=== PATIENT | female | born 1945 | race Caucasian/White ===

== ENCOUNTER 2016-12-01 09:53 | Outpatient (CLI) | payer MEDICARE | END 2016-12-01 09:54 | disposition home or self-care (01) | DX: R07.9 Chest pain, unspecified (principal) | CPT/HCPCS: 78452; 93017; A9500 ==

== ENCOUNTER 2016-12-11 10:41 | Outpatient (CLI) | payer MEDICARE | END 2016-12-11 10:42 | disposition home or self-care (01) | DX: R07.9 Chest pain, unspecified (principal) ==

== ENCOUNTER 2017-04-07 12:21 | Outpatient (CLI) | payer MEDICARE ==
--- NOTE | 2017-04-08 18:40 | Mammography Report ---
DIGITAL SCREENING MAMMOGRAM: 04/07/2017 CLINICAL INDICATION: A 71-year-old with history of benign biopsies for screening. COMPARISON: 03/2016, 02/2016, 10/2013, 04/2012, 11/2010, 10/2009. TECHNIQUE: Routine CC and MLO projections were obtained of the breasts. FINDINGS: The breasts again demonstrate heterogeneously dense fibroglandular parenchyma bilaterally. Postbiopsy changes in the left upper outer quadrant are stable. Coarse, typically benign calcifica tions are present. No suspicious masses, clustered microcalcifications, or regions of architectural distortion are identified. IMPRESSION: BENIGN FINDINGS. RECOMMENDATION: Routine annual screening unless otherwise clinically indicated. BI-RADS category 2, benign findings. STANDARD QUALIFYING STATEMENTS 1. This examination was reviewed with the aid of Computer-Aided Detection (CAD). 2. A negative or benign imaging report should not delay biopsy if clinically suspicious findings are present. Consider surgical consultation if warranted. More than 5% of cancers are not identified by i maging. 3. Dense breasts may obscure an underlying neoplasm. JOB #: [id number] EXT JOB #:[id number]
== END 2017-04-07 12:22 | disposition home or self-care (01) ==
LOC: DI 12:21
PROVIDERS: ATTEND Internal Medicine
DX: Z12.31 Encounter for screening mammogram for malignant neoplasm of breast (principal)
CPT/HCPCS: 77067

== ENCOUNTER 2017-07-16 11:03 | Outpatient (CLI) | payer MEDICARE ==
--- NOTE | 2017-07-17 08:49 | XRAY Report ---
THREE VIEW RIGHT FOOT: 07/16/2017 CLINICAL INDICATION: Pain. FINDINGS: AP, lateral, oblique views of the right foot demonstrate no evidence of acute fracture or dislocation. Posttraumatic changes are seen in the proximal phalanx of the second toe and the fifth metatarsal. Osteoarthritis is present. No foreign body is seen in the soft tissues. IMPRESSION: Osteoarthritis and old, healed fractures. TD: 07/16/2017 19:04 [facility]
== END 2017-07-16 11:04 | disposition home or self-care (01) ==
LOC: DI 11:03
PROVIDERS: ATTEND Podiatrist
DX: M19.071 Primary osteoarthritis, right ankle and foot (principal)

== ENCOUNTER 2017-12-21 21:02 | Emergency (ER) | payer MEDICARE ==
[2017-12-21 21:38] LABS: BASOPHILS # (AUTO) 0.2 10^3/uL (0.0-0.1); BASOPHILS % (AUTO) 1.6 %; EOSINOPHILS # (AUTO) 0.2 10^3/uL (0.0-0.7); EOSINOPHILS % (AUTO) 1.3 %; HGB - HEMOGLOBIN 13.9 g/dL (12.0-16.0); LYMPHOCYTES # (AUTO) 1.6 10^3/uL (1.5-3.5); LYMPHOCYTES % (AUTO) 13.8 %; MEAN CORPUSCULAR HEMOGLOBIN 29.1 pg (27.0-31.0); MEAN CORPUSCULAR HGB CONC 34.6 g/dL (32.0-36.0); MEAN CORPUSCULAR VOLUME 84.1 fL (81.0-99.0); MONOCYTES # (AUTO) 1.2 10^3/uL (0.0-1.0); MONOCYTES % (AUTO) 10.4 %; NEUTROPHILS # (AUTO) 8.4 10^3/uL (1.5-6.6); NEUTROPHILS % (AUTO) 72.9 %; PLT - PLATELET COUNT 244 10^3/uL (130-450); RED BLOOD COUNT 4.79 10^6/uL (4.20-5.40); RED CELL DISTRIBUTION WIDTH 13.3 % (12.0-15.0); WHITE BLOOD COUNT 11.5 x10^3/uL (4.8-10.8)
[2017-12-21 21:50] LABS: ALBUMIN 4.1 g/dL (3.2-5.5); ALBUMIN/GLOBULIN RATIO 1.2 (1.0-2.2); BILIRUBIN,TOTAL 0.9 mg/dL (0.2-1.0); CALCIUM 9.7 mg/dL (8.5-10.3); CREATININE 1.4 mg/dL (0.4-1.0); TOTAL PROTEIN 7.4 g/dL (6.7-8.2)
[2017-12-21 22:10] LABS: TROPONIN I < 0.04 ng/mL (<0.49)
[2017-12-21 22:12] LABS: CREATINE KINASE MB 1.6 ng/mL (0.6-6.3)
--- NOTE | 2017-12-21 22:54 | XRAY Report ---
EXAM: CHEST RADIOGRAPHY EXAM DATE: 12/21/2017 10:17 PM. CLINICAL HISTORY: Syncope. Dizziness. COMPARISON: 12/11/2016. TECHNIQUE: 2 views. FINDINGS: Lungs/Pleura: No focal opacities evident. No pleural effusion. No pneumothorax. Normal volumes. Mediastinum: Heart and mediastinal contours are unremarkable. Other: No bony abnormalities noted. IMPRESSION: Normal 2-view chest radiography. [facility] Referring Provider Line: [phone] SITE ID: [id number]
--- NOTE | 2017-12-21 22:54 | XRAY Preliminary Report ---
Exam: XR CHEST 2 VIEW X-RAY IMPRESSION: Normal 2-view chest radiography. [facility] SITE ID: [id number]
--- NOTE | 2017-12-21 23:01 | CT Preliminary Report ---
Exam: CT HEAD W/O IMPRESSION: 1. No acute intracranial abnormality. 2. No intracranial mass lesion, mass effect, or hydrocephalus. 3. Chronic right basal ganglia infarct. There is also chronic microvascular change in the deep white matter bilaterally. [facility] SITE ID: [id number]
--- NOTE | 2017-12-21 23:01 | CT Report ---
EXAM: CT HEAD EXAM DATE: 12/21/2017 10:27 PM. CLINICAL HISTORY: Syncope, headaches, diplopia. COMPARISON: None. TECHNIQUE: Multiaxial CT images were obtained from the foramen magnum to the vertex. Reformats: Coron al. IV contrast: None. In accordance with CT protocol optimization, one or more of the following dose reduction techniques w ere utilized for this exam: automated exposure control, adjustment of mA and/or KV based on patient s ize, or use of iterative reconstructive technique. FINDINGS: Parenchyma: No intraparenchymal hemorrhage. No evidence of mass, midline shift, or CT findings of acu te infarction. Rendon-white differentiation is distinct. There is a 15 mm chronic infarct in the right basal ganglia. There is mild to moderate chronic microvascular change in the white matter of both cer ebral hemispheres. Extraaxial Spaces: Normal for age. No subdural or epidural collections identified. Ventricles: There is mild asymmetry of the frontal horns of both lateral ventricles with the left sma ller than the right. This is within normal limits. There is no hydrocephalus. Sinuses and Orbits: There is mild mucosal thickening in the left maxillary sinus and a few bilateral ethmoid air cells. Visualized sinuses are otherwise clear. No fluid levels. Mastoid air cells are noah ar. Orbits are unremarkable. Bones: No evidence of fracture or calvarial defect. Other: None. IMPRESSION: 1. No acute intracranial abnormality. 2. No intracranial mass lesion, mass effect, or hydrocephalus. 3. Chronic right basal ganglia infarct. There is also chronic microvascular change in the deep white matter bilaterally. [facility] Referring Provider Line: [phone] SITE ID: [id number]
[2017-12-21] MEDS ORDERED: ACETAMINOPHEN 325 MG TABLET PO STA (23:23)
[2017-12-22 01:03] VITALS: BP 149/52
--- NOTE | 2017-12-22 23:01 | ED Physician Documentation ---
PD HPI SYNCOPE - Stated complaint Stated Complaint: FAINTING - Chief complaint Chief Complaint: Neuro - History obtained from History obtained from: Patient, Family, EMS - History of Present Illness Witnessed: Witnessed Timing - onset: How many days ago (past two days) Duration: Seconds (less than a minute, per spouse) Preceding symptoms: Light headed, Generalized weakness. No: Chest pain, Palpitations, Dyspnea Associated symptoms: None Recently seen: Not recently seen - Additional information Additional information: c/o four episodes of syncope past 48 hours. these have occurred shortly after standing, except once when she had just sat down on toilet. prodrome of lightheadedness, last 30-45 seconds and then rapid return to baseline. Review of Systems Constitutional: reports: Reviewed and negative Eyes: reports: Other (diplopia (has seen shipping specialist for this, no diagnosis at this time)) Cardiac: reports: Reviewed and negative Respiratory: reports: Reviewed and negative GI: reports: Reviewed and negative : denies: Dysuria, Frequency Musculoskeletal: denies: Neck pain, Back pain Neurologic: reports: Generalized weakness, Syncope, Headache, LOC. denies: Focal weakness, Numbness, Seizure, Confused, Altered mental status, Head injury PD PAST MEDICAL HISTORY - Past Medical History Past Medical History: Yes Cardiovascular: Hypertension, High cholesterol Respiratory: Asthma Neuro: None Endocrine/Autoimmune: Type 1 diabetes GI: None, Other : None HEENT: None Psych: None Musculoskeletal: Osteoarthritis Derm: None, Other - Past Surgical History Past Surgical History: Yes Ortho: Other /[employer]: section, 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, 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 Cardiovascular: Cardiac catheterization HEENT: Cataracts - Present Medications Home Medications: Ambulatory Orders Medication Instructions Recorded Confirmed Albuterol Sulfate [Proair Hfa] 8.5 gm IH BID PRN 10/24/13 12/21/17 Diltiazem HCl [Diltzac ER] 240 mg PO DAILY 10/24/13 12/21/17 Insulin Detemir [Levemir] 10 unit SUBQ ACHS 10/24/13 12/21/17 Simvastatin [Zocor] 10 mg PO HS 10/24/13 12/21/17 Aspirin [Aspir 81] 1 tab ORAL DAILY 02/02/14 12/21/17 Beclomethasone Dipropionate [Qvar] 1 puffs INH BID 02/02/14 12/21/17 Calcium Citrate/Vitamin D3 1 tab ORAL BID 02/02/14 12/21/17 [Calcium Cit-Vit D 250-200 Tab] Citalopram [CeleXA] 20 mg ORAL DAILY 02/02/14 12/21/17 Insulin Lispro [Humalog] 20 units SQ DAILY 02/02/14 12/21/17 Losartan/Hydrochlorothiazide 1 tab ORAL DAILY 02/02/14 12/21/17 [Losartan-Hctz 100-12.5 mg Tab] Insulin Detemir [Levemir Flextouch] 20 units SUBQ DAILY 12/21/17 12/21/17 - Allergies Allergies/Adverse Reactions: Allergies Allergy/AdvReac Type Severity Reaction Status Date / Time quinidine AdvReac Dizziness Verified 12/21/17 21:18 tetracycline [Tetracycline] AdvReac Emesis Verified 12/21/17 21:18 - Social History Does the pt smoke?: No Smoking Status: Never smoker Does the pt drink ETOH?: No Does the pt have substance abuse?: No - Immunizations Immunizations are current?: Yes - POLST Patient has POLST: No PD ED PE NORMAL - Vitals Vital signs reviewed: Yes - General General: Alert and oriented X 3, No acute distress, Well developed/nourished - HEENT HEENT: PERRL, EOMI, Moist mucous membranes - Neck Neck: Supple, no meningeal sign, No bony TTP - Cardiac Cardiac: RRR, No murmur, No gallop, No rub - Respiratory Respiratory: No respiratory distress, Clear bilaterally - Abdomen Abdomen: Soft, Non tender - Extremities Extremities: No edema - Neuro Neuro: Alert and oriented X 3, eviscerator 2-12 intact, No motor deficit, No sensory deficit, Normal speech Eye Opening: Spontaneous Motor: Obeys Commands Verbal: Oriented GCS Score: 15 Results - Vitals Vitals: Vital Signs - 24 hr 12/21/17 12/21/17 12/22/17 23:12 23:13 00:24 Temperature 36.9 C Heart Rate 91 79 Respiratory 17 16 16 Rate Blood Pressure 157/69 H O2 Saturation 97 12/22/17 01:01 Temperature Heart Rate 75 Respiratory 17 Rate Blood Pressure 149/52 H O2 Saturation 97 Oxygen O2 Source Room air - EKG (time done) No standard instances Rate: Rate (enter#) (44) Rhythm: Other (ectopic bradycardia) [place]: Normal QRS: Normal Ischemia: Normal ST segments #2 Rate: Rate (enter#) (67) Rhythm: NSR [place]: Normal Intervals: Normal [place] QRS: Normal Ischemia: Normal ST segments - Labs Labs: Laboratory Tests 12/21/17 12/21/17 12/21/17 21:30 21:30 21:30 WBC 11.5 H RBC 4.79 Hgb 13.9 Hct 40.3 MCV 84.1 MCH 29.1 MCHC 34.6 RDW 13.3 Plt Count 244 MPV 8.0 Neut # 8.4 H Lymph # 1.6 [place] # 1.2 H Eos # 0.2 Baso # 0.2 H Absolute Nucleated RBC 0.00 Nucleated RBC % 0.0 Sodium Potassium Chloride Carbon Dioxide Anion Gap BUN Creatinine Estimated GFR (MDRD) Glucose POC Whole Bld Glucose Calcium Total Bilirubin AST ALT Alkaline Phosphatase Total Creatine Kinase 54 CK-MB (CK-2) 1.6 Troponin I < 0.04 Total Protein Albumin Globulin Albumin/Globulin Ratio Lipase 12/21/17 12/21/17 21:30 21:39 WBC RBC Hgb Hct MCV MCH MCHC RDW Plt Count MPV Neut # Lymph # [place] # Eos # Baso # Absolute Nucleated RBC Nucleated RBC % Sodium 135 Potassium 3.8 Chloride 95 L Carbon Dioxide 29 Anion Gap 11.0 BUN 23 H Creatinine 1.4 H Estimated GFR (MDRD) 37 L Glucose 198 H POC Whole Bld Glucose 193 H Calcium 9.7 Total Bilirubin 0.9 AST 22 ALT 15 Alkaline Phosphatase 40 L Total Creatine Kinase CK-MB (CK-2) Troponin I Total Protein 7.4 Albumin 4.1 Globulin 3.3 Albumin/Globulin Ratio 1.2 Lipase 47 - Rads (name of study) CTH Radiology: Prelim report reviewed, See rad report chest xray Radiology: Prelim report reviewed, See rad report PD MEDICAL DECISION MAKING - ED course Complexity details: reviewed results, re-evaluated patient, considered differential, d/w patient, d/w family ED course: remained asymptomatic during ED stay. brief periods on surveillance system monitor when p waved were not visible; these would last less than a minute before reverting back to NSR with clearly visible p waves preceding each QRS. there were no symptoms associated with these episodes (I was in the room for two of these episodes) and no change in vital signs. the QRS remained narrow and regular during episodes. while there does not appear to be a clinical significance to these episodes, further testing, such as Holter monitor, might be beneficial in outpatient setting. Departure - Departure Disposition: 01 Home, Self Care Clinical Impression: Syncope Qualifiers: Syncope type: unspecified Qualified Code(s): R55 - Syncope and collapse Condition: Good Instructions: ED Fainting Unkn Cause, ED Dizziness Syncope Fainting W Pre Follow-Up: Perla Kuhn MD [Primary Care Provider] - (Call to arrange for next available appointment) Discharge Date/Time: 12/22/17 01:04
== END 2017-12-22 01:04 | disposition home or self-care (01) ==
LOC: ED 21:02
DX: R55 Syncope and collapse (principal); I10 Essential (primary) hypertension; E78.00 Pure hypercholesterolemia, unspecified; E10.9 Type 1 diabetes mellitus without complications; Z79.4 Long term (current) use of insulin; Z79.82 Long term (current) use of aspirin; R00.1 Bradycardia, unspecified
CPT/HCPCS: 36415; 70450; 71046; 80053; 82550; 82553; 83690; 84484; 85025; 93005; 99284; A9270

== ENCOUNTER 2018-01-30 08:01 | Outpatient (CLI) | payer MEDICARE ==
[2018-01-30 08:28] LABS: CREATININE 1.3 mg/dL (0.4-1.0)
[2018-01-30] MEDS ORDERED: GADOBUTROL 10 MMOL/10 ML VIAL ONE (09:19)
[2018-01-30] MEDS ORDERED: GADOBUTROL 10 MMOL/10 ML VIAL IVP ONE (09:44)
--- NOTE | 2018-01-31 00:12 | MRI Report ---
Procedure Date: 01/30/2018 Accession Number: [id number] / [id number] Procedure: MRI - Brain W/WO CPT Code: FULL RESULT: EXAM: MRI BRAIN WITH AND WITHOUT CONTRAST COMPARISON: none. CLINICAL HISTORY: Vertigo, double vision, syncope. TECHNIQUE: Multiplanar multisequence imaging is performed through the head with and without gadolinium based contrast 7.5 mL Gadavist. FINDINGS: Diffusion-weighted imaging shows no acute infarct. Gradient sequence shows no evident prior parenchymal hemorrhage. There is an old right anterolateral basal ganglia infarct. Moderate patchy white matter low attenuation is concordant with small vessel angiopathy and prior lacunar infarcts. Ventricles are prominent, particularly the right, presumed to reflect ex vacuo dilatation. There is evidence small vessel angiopathy in the rajesh. No posterior fossa masses. Modest posterior fossa volume loss. T1 imaging shows no abnormal elevated parenchymal precontrast T1 signal. Postcontrast three-dimensional spoiled gradient sequence shows no abnormal parenchymal enhancement. Limited evaluation of the dural venous sinuses and arterial structures is unremarkable. Pituitary fossa, clivus and foramen magnum are unremarkable. No intraorbital masses. No abnormal signal within either optic nerve. Chiasm is unremarkable, as are the optic tracts. No occipital masses. No occipital encephalomalacia. No midbrain or pontine infarcts. IMPRESSION: No acute infarct, mass, or evident abnormality along the course of either optic nerve. There are findings concordant with prior vascular injury as described.
== END 2018-01-30 08:02 | disposition home or self-care (01) ==
LOC: LAB 08:01
PROVIDERS: ATTEND Internal Medicine
DX: R42 Dizziness and giddiness (principal); H53.2 Diplopia; R55 Syncope and collapse
CPT/HCPCS: 36415; 70553; 82565; A9585

== ENCOUNTER 2018-03-12 09:13 | Outpatient (CLI) | payer MEDICARE ==
[2018-03-12 09:46] LABS: BASOPHILS # (AUTO) 0.1 10^3/uL (0.0-0.1); BASOPHILS % (AUTO) 1.4 %; EOSINOPHILS # (AUTO) 0.4 10^3/uL (0.0-0.7); EOSINOPHILS % (AUTO) 7.3 %; HGB - HEMOGLOBIN 13.2 g/dL (12.0-16.0); LYMPHOCYTES # (AUTO) 1.2 10^3/uL (1.5-3.5); LYMPHOCYTES % (AUTO) 22.7 %; MEAN CORPUSCULAR HEMOGLOBIN 29.8 pg (27.0-31.0); MEAN CORPUSCULAR HGB CONC 34.4 g/dL (32.0-36.0); MEAN CORPUSCULAR VOLUME 86.5 fL (81.0-99.0); MEAN PLATELET VOLUME 8.2 fL (7.9-10.8); MONOCYTES # (AUTO) 0.6 10^3/uL (0.0-1.0); MONOCYTES % (AUTO) 11.5 %; NEUTROPHILS # (AUTO) 3.1 10^3/uL (1.5-6.6); NEUTROPHILS % (AUTO) 57.1 %; PLT - PLATELET COUNT 180 10^3/uL (130-450); RED BLOOD COUNT 4.45 10^6/uL (4.20-5.40); RED CELL DISTRIBUTION WIDTH 13.7 % (12.0-15.0); WHITE BLOOD COUNT 5.5 x10^3/uL (4.8-10.8)
[2018-03-12 09:53] LABS: BILIRUBIN,URINE NEGATIVE (NEGATIVE); GLUCOSE, URINE (UA) NEGATIVE (NEGATIVE); KETONES,URINE (UA) NEGATIVE (NEGATIVE); LEUKOCYTE ESTERASE, URINE SMALL (NEGATIVE); NITRITE,URINE NEGATIVE (NEGATIVE); OCCULT BLOOD,URINE SMALL (NEGATIVE); PROTEIN,URINE NEGATIVE (NEGATIVE); UROBILINOGEN,URINE 0.2 (NORMAL) E.U./dL (NORMAL)
[2018-03-12 09:59] LABS: CLARITY,URINE CLEAR (CLEAR)
[2018-03-12 10:01] LABS: ALBUMIN 3.9 g/dL (3.2-5.5); ALBUMIN/GLOBULIN RATIO 1.5 (1.0-2.2); BILIRUBIN,TOTAL 0.8 mg/dL (0.2-1.0); CALCIUM 9.5 mg/dL (8.5-10.3); CREATININE 1.1 mg/dL (0.4-1.0); MAGNESIUM 1.5 mg/dL (1.7-2.8); TOTAL PROTEIN 6.5 g/dL (6.7-8.2)
[2018-03-12 10:09] LABS: BACTERIA,URINE Rare /HPF (None Seen); CREATININE,URINE 146.6 mg/dL; MICROALBUM/CREATININE RATIO,UR 28.6 ug/mg (<30.0); MICROALBUMIN,URINE 4.2 mg/dL (0-300.0); RBC,URINE 0-5 /HPF (0-5); SQUAMOUS EPITHELIAL CELL,UR RARE Squamous (<= Few)
[2018-03-12 10:21] LABS: HB2 TOTAL 14.1 g/dL; HEMOGLOBIN A1C 0.71 g/dL; HEMOGLOBIN A1C % 6.8 % (4.6-6.2)
[2018-03-12 10:43] LABS: THYROID STIMULATING HORMONE 5.11 uIU/mL (0.34-5.60)
== END 2018-03-12 09:14 | disposition home or self-care (01) ==
LOC: LAB 09:13
PROVIDERS: ATTEND Internal Medicine
DX: I12.9 Hypertensive chronic kidney disease with stage 1 through stage 4 chronic kidney disease, or unspecified chronic kidney disease (principal); J45.909 Unspecified asthma, uncomplicated; I48.0 Paroxysmal atrial fibrillation; I47.1 Supraventricular tachycardia; N18.9 Chronic kidney disease, unspecified; I63.9 Cerebral infarction, unspecified; E10.9 Type 1 diabetes mellitus without complications; E78.5 Hyperlipidemia, unspecified; R32 Unspecified urinary incontinence
CPT/HCPCS: 36415; 80053; 81001; 81003; 82043; 82550; 82570; 82607; 83036; 83735; 84443; 85025; 87086; 87181

== ENCOUNTER 2018-03-26 08:26 | Outpatient (CLI) | payer MEDICARE ==
--- NOTE | 2018-03-26 11:10 | Ultrasound Report ---
Reason: CVA Procedure Date: 03/26/2018 Accession Number: [id number] / [id number] Procedure: US - Carotid Doppler Complete CPT Code: FULL RESULT: EXAM: BILATERAL CAROTID AND VERTEBRAL ARTERY DUPLEX DOPPLER ULTRASOUND: EXAM DATE: 03/26/2018 09:18 AM CLINICAL HISTORY: Cerebral vascular accident. COMPARISON: None. TECHNIQUE: Grayscale imaging, color Doppler, and duplex spectral Doppler were used to evaluate the carotid and vertebral arteries bilaterally. Static images were obtained. FINDINGS: No significant plaque is identified in the right or left common carotid arteries. The bilateral bulbs and internal carotid arteries demonstrate hypoechoic less than 25% plaque at the right bulb and intimal thickening in both systems and approximately 50% hypoechoic atherosclerotic plaque in the right mid ICA, as well as approximately 50% narrowing visually in the left distal ICA by hypoechoic plaque. Normal antegrade flow is present in bilateral vertebral arteries. VELOCITIES (cm/sec): VELOCITIES: RIGHT CCA mid: PSV 58 cm/sec. CCA dist: PSV 67 cm/sec ICA prox: PSV 59 cm/sec, EDV 9 cm/sec ICA mid: PSV 61 cm/sec, EDV 14 cm/sec ICA dist: PSV 52 cm/sec, EDV 16 cm/sec ECA: PSV 71 cm/sec Vert: PSV 61 cm/sec ICA/CCA: 0.91 LEFT CCA mid: PSV 56 cm/sec CCA dist: PSV 53 cm/sec ICA prox: PSV 62 cm/sec, EDV 9 cm/sec ICA mid: PSV 40 cm/sec, EDV 11 cm/sec ICA dist: PSV 48 cm/sec, EDV 12 cm/sec ECA: PSV 73 cm/sec Vert: PSV 82 cm/sec ICA/CCA: 1.10 ICA diameter stenosis: Right: <50% by velocity and <70% by NASCET criteria. Left: <50% by velocity and <70% by NASCET criteria. IMPRESSION: 1. Hypoechoic up to 50% bilateral carotid artery plaquing. 2. In the right carotid artery there are no elevated carotid artery velocities to suggest hemodynamically significant stenosis. 3. In the left carotid artery there are no elevated carotid artery velocities to suggest hemodynamically significant stenosis. 4. Normal antegrade flow is present in bilateral vertebral arteries. General Recommendations: Stenosis =50% ICA - Follow-up ultrasound 6-12 months Stenosis <50% ICA - High Risk Patient with plaque - Follow-up ultrasound 1-2 years Normal Study but High Risk Patient - Follow-up ultrasound 3-5 years Management recommendations and diagnostic criteria are based on current IAC endorsed standards in Carotid Artery Stenosis: Grayscale and Doppler Ultrasound Diagnosis. Validated velocity measurements with angiographic measurements and velocity criteria are extrapolated from diameter data as defined by the Society of Radiologists in Ultrasound Consensus Conference Radiology 2003; 229;340-346. [facility]
== END 2018-03-26 08:27 | disposition home or self-care (01) ==
LOC: DI 08:26
PROVIDERS: ATTEND Internal Medicine
DX: Z86.73 Personal history of transient ischemic attack (TIA), and cerebral infarction without residual deficits (principal)
CPT/HCPCS: 93880

== ENCOUNTER 2018-03-26 11:41 | Outpatient (CLI) | payer MEDICARE | END 2018-03-26 11:42 | disposition home or self-care (01) | LOC: DI 11:41 | PROVIDERS: ATTEND Internal Medicine | DX: I47.1 Supraventricular tachycardia (principal); Z86.73 Personal history of transient ischemic attack (TIA), and cerebral infarction without residual deficits | CPT/HCPCS: 93306 ==

== ENCOUNTER 2018-04-28 10:54 | Outpatient (CLI) | payer MEDICARE ==
--- NOTE | 2018-04-29 13:04 | Mammography Report ---
Reason: BILAT SCREEN w CIRA Procedure Date: 04/28/2018 Accession Number: [id number] / [id number] Procedure: LAZARO - Screening Mammo w/Cira CPT Code: FULL RESULT: EXAM: Screening Mammo w/Cira DATE: 04/28/2018 11:34 AM CLINICAL HISTORY: 73-year-old female with history of benign left breast lump removal. TECHNIQUE: Bilateral CC, laterally exaggerated CC, MLO views were obtained. COMPARISON: None FINDINGS: The breasts demonstrate heterogeneously dense fibroglandular parenchyma bilaterally. Postbiopsy changes in left breast are stable. No suspicious masses, clustered microcalcifications, or regions of architectural distortion are identified. IMPRESSION: Benign findings RECOMMENDATION: Routine annual screening unless otherwise clinically indicated. BIRADS CATEGORY 2: Benign findings STANDARD QUALIFYING STATEMENTS: 1. This examination was not reviewed with the aid of Computer-Aided Detection (CAD). 2. A negative or benign imaging report should not delay biopsy if clinically suspicious findings are present. Consider surgical consultation if warrented. More than 5% of cancers are not identified by imaging. 3. Dense breasts may obscure an underlying neoplasm. 4. This examination was reviewed with the aid of 3D breast imaging (tomosynthesis).
== END 2018-04-28 10:55 | disposition home or self-care (01) ==
LOC: DI 10:54
PROVIDERS: ATTEND Internal Medicine
DX: Z12.31 Encounter for screening mammogram for malignant neoplasm of breast (principal)
CPT/HCPCS: 77063; 77067

== ENCOUNTER 2018-11-25 09:45 | Outpatient (CLI) | payer MEDICARE ==
--- NOTE | 2018-11-26 15:09 | XRAY Report ---
Reason: INJURY 3RD DIGIT R/3 WKS AGO Procedure Date: 11/25/2018 Accession Number: [id number] / [id number] Procedure: XR - Toe(s) RT CPT Code: FULL RESULT: EXAM: RIGHT TOE RADIOGRAPHY EXAM DATE: 11/25/2018 10:26 AM. CLINICAL HISTORY: Injured right third toe of right foot 3 weeks ago, pain, swelling and open sore on plantar surface. COMPARISON: FOOT 3 VIEW RT 07/16/2017 11:10 AM. TECHNIQUE: 3 views. FINDINGS: Bones: No acute fracture or bony lesion. No bony erosions or periosteal reaction. Hypoplastic right second proximal phalanx again seen. Joints: Degenerative changes of the right first digit and right midfoot. No dislocation. Soft Tissues: Soft tissue swelling. Soft tissue defect/ulceration along the distal aspect of the right third digit. No radiopaque foreign bodies. Soft tissue swelling of the right third digit. No subcutaneous air/gas. IMPRESSION: 1. No radiographic evidence of osteomyelitis. [facility]
== END 2018-11-25 09:46 | disposition home or self-care (01) ==
LOC: DI 09:45
PROVIDERS: ATTEND Podiatrist
DX: S99.921A Unspecified injury of right foot, initial encounter (principal)
CPT/HCPCS: 73660

== ENCOUNTER 2018-12-27 11:43 | Outpatient (CLI) | payer MEDICARE ==
[2018-12-27 12:08] LABS: CREATININE 1.1 mg/dL (0.4-1.0)
[2018-12-27] MEDS ORDERED: GADOBUTROL 10 MMOL/10 ML VIAL ONE (13:54)
[2018-12-27] MEDS ORDERED: GADOBUTROL 10 MMOL/10 ML VIAL IVP ONE (14:01)
--- NOTE | 2018-12-27 16:01 | MRI Report ---
Reason: DIPLOPIA Procedure Date: 12/27/2018 Accession Number: [id number] / [id number] Procedure: MRI - Brain W/WO CPT Code: FULL RESULT: EXAM: MRI BRAIN WITHOUT AND WITH CONTRAST EXAM DATE: 12/27/2018 02:10 PM. CLINICAL HISTORY: Diplopia. The history accompanying the prior comparison brain MRI was vertigo, double vision and syncope. COMPARISON: BRAIN W/WO 01/30/2018 8:13 AM. TECHNIQUE: Multiplanar, multisequence T1-weighted and fluid-sensitive MR sequences of the brain were performed. Sequences optimized for brain and orbit evaluation. Other: None. IV Contrast: 8 mL Gadavist. FINDINGS: No acute stroke, hemorrhage or hydrocephalus. Stable atrophy. Stable ventricular asymmetry. Stable chronic fluid signal focus in the anterior right basal ganglia region which may be an old lacunar infarct or dilated perivascular space. Stable moderately prominent multifocal white matter disease of the cerebral hemispheres. Stable extensive abnormal T2 hyperintensity in the brainstem, mainly in the rajesh. These T2 hyperintense signal abnormalities are likely from chronic microangiopathy and aging. Previous lens extractions. No exophthalmos. No enhancing or space-occupying intraorbital mass. Symmetric unremarkable appearance of the extraocular muscles. Unremarkable symmetric lacrimal glands. No focal abnormal enhancement, mass or edema of the optic nerves. No space-occupying lesion in the region of the pituitary fossa, cavernous sinus or suprasellar cistern. Normal contours of the optic chiasm. No other evidence for intracranial abnormal enhancement. Contrast opacification of the major dural venous sinuses is present as expected. The major arterial skull base flow voids are present. Minimal probably chronic paranasal sinus mucosal thickening including at the floor of the left maxillary sinus. IMPRESSION: 1. Unremarkable MRI appearance of the orbits. 2. Stable appearance of the brain. No new or acute abnormality. Stable atrophy, extensive white matter disease and asymmetric ventricular contours. [facility]
== END 2018-12-27 11:44 | disposition home or self-care (01) ==
LOC: LAB 11:43 → DI 11:44
PROVIDERS: ATTEND Internal Medicine
DX: H53.2 Diplopia (principal); R90.82 White matter disease, unspecified; G31.9 Degenerative disease of nervous system, unspecified
CPT/HCPCS: 36415; 70553; 82565; A9585

== ENCOUNTER 2019-01-11 12:23 | Outpatient (CLI) | payer MEDICARE ==
--- NOTE | 2019-01-11 14:01 | XRAY Report ---
Reason: R HIP PAIN Procedure Date: 01/11/2019 Accession Number: [id number] / [id number] Procedure: XR - Hip w/Pelvis 2-3V RT CPT Code: FULL RESULT: EXAM: RIGHT HIP RADIOGRAPHY EXAM DATE: 01/11/2019 01:03 PM. CLINICAL HISTORY: Right hip pain. COMPARISON: None. TECHNIQUE: 2 views. FINDINGS: Bones: Normal. No fractures or bone lesion. Joints: There is mild to moderate medial predominant joint space narrowing with subchondral cyst formation and osteophytosis at the right hip joint. No dislocation. Soft Tissues: Normal. No soft tissue swelling. IMPRESSION: Degenerative changes. [facility]
== END 2019-01-11 12:24 | disposition home or self-care (01) ==
LOC: DI 12:23
PROVIDERS: ATTEND Internal Medicine
DX: M16.11 Unilateral primary osteoarthritis, right hip (principal)

== ENCOUNTER 2019-03-04 11:22 | Outpatient (CLI) | payer MEDICARE ==
--- NOTE | 2019-03-05 11:18 | Ultrasound Report ---
Reason: CAROTID ARTERY STENOSIS Procedure Date: 03/04/2019 Accession Number: [id number] / [id number] Procedure: US - Carotid Doppler Complete CPT Code: FULL RESULT: EXAM: BILATERAL CAROTID AND VERTEBRAL ARTERY DUPLEX DOPPLER ULTRASOUND: EXAM DATE: 03/04/2019 12:39 PM CLINICAL HISTORY: Carotid artery stenosis. COMPARISON: CAROTID DOPPLER COMPLETE 03/26/2018 8:39 AM. TECHNIQUE: Grayscale imaging, color Doppler, and duplex spectral Doppler were used to evaluate the carotid and vertebral arteries bilaterally. Static images were obtained. FINDINGS: Mild atheromatous plaques are present in the right carotid bulb extending into the internal carotid artery. However, no hemodynamically significant stenoses are noted. Mild atheromatous plaques are present in the left carotid bulb extending into the internal carotid artery. However, no hemodynamically significant stenoses are noted. Visualized portions of the neck soft tissues are grossly unremarkable. Normal antegrade flow is present in bilateral vertebral arteries. VELOCITIES (cm/sec): Right CCA mid: PSV 72 cm/sec CCA dist: PSV 61 cm/sec ICA prox: PSV 55 cm/sec, EDV 10 cm/sec ICA mid: PSV 65 cm/sec, EDV 13 cm/sec ICA dist: PSV 97 cm/sec, EDV 25 cm/sec ECA: PSV 93 cm/sec Vert: PSV 62 cm/sec ICA/CCA: 1.34 Left CCA mid: PSV 65 cm/sec CCA dist: PSV 57 cm/sec ICA prox: PSV 62 cm/sec, EDV 7 cm/sec ICA mid: PSV 42 cm/sec, EDV 4 cm/sec ICA dist: PSV 43 cm/sec, EDV 12 cm/sec ECA: PSV 69 cm/sec Vert: PSV 56 cm/sec ICA/CCA: 0.95 ICA diameter stenosis: Right: <50% by velocity and <70% by NASCET criteria. Left: <50% by velocity and <70% by NASCET criteria. IMPRESSION: 1. Mild bilateral carotid artery plaquing. 2. In the right carotid artery there are no elevated carotid artery velocities to suggest hemodynamically significant stenosis. 3. In the left carotid artery there are no elevated carotid artery velocities to suggest hemodynamically significant stenosis. 4. Normal antegrade flow is present in bilateral vertebral arteries. General Recommendations: Stenosis =50% ICA - Follow-up ultrasound 6-12 months Stenosis <50% ICA - High Risk Patient with plaque - Follow-up ultrasound 1-2 years Normal Study but High Risk Patient - Follow-up ultrasound 3-5 years Management recommendations and diagnostic criteria are based on current IAC endorsed standards in Carotid Artery Stenosis: Grayscale and Doppler Ultrasound Diagnosis. Validated velocity measurements with angiographic measurements and velocity criteria are extrapolated from diameter data as defined by the Society of Radiologists in Ultrasound Consensus Conference Radiology 2003; 229;340-346. [facility]
== END 2019-03-04 11:23 | disposition home or self-care (01) ==
LOC: DI 11:22
PROVIDERS: ATTEND Internal Medicine
DX: I65.29 Occlusion and stenosis of unspecified carotid artery (principal)
CPT/HCPCS: 93880

== ENCOUNTER 2019-03-17 10:18 | Outpatient (CLI) | payer MEDICARE ==
[2019-03-17 10:40] LABS: BILIRUBIN,URINE NEGATIVE (NEGATIVE); GLUCOSE, URINE (UA) NEGATIVE (NEGATIVE); KETONES,URINE (UA) NEGATIVE (NEGATIVE); LEUKOCYTE ESTERASE, URINE NEGATIVE (NEGATIVE); NITRITE,URINE NEGATIVE (NEGATIVE); OCCULT BLOOD,URINE TRACE-INTA (NEGATIVE); PH,URINE 7.5 PH (5.0-7.5); PROTEIN,URINE NEGATIVE (NEGATIVE); UROBILINOGEN,URINE 0.2 (NORMAL) E.U./dL (NORMAL)
[2019-03-17 10:40] LABS: BASOPHILS # (AUTO) 0.1 10^3/uL (0.0-0.1); EOSINOPHILS # (AUTO) 0.5 10^3/uL (0.0-0.7); EOSINOPHILS % (AUTO) 8.9 %; HGB - HEMOGLOBIN 11.9 g/dL (12.0-16.0); LYMPHOCYTES # (AUTO) 1.2 10^3/uL (1.5-3.5); LYMPHOCYTES % (AUTO) 20.6 %; MEAN CORPUSCULAR HEMOGLOBIN 28.5 pg (27.0-31.0); MEAN CORPUSCULAR HGB CONC 31.1 g/dL (32.0-36.0); MEAN CORPUSCULAR VOLUME 91.6 fL (81.0-99.0); MEAN PLATELET VOLUME 9.7 fL (7.9-10.8); MONOCYTES # (AUTO) 0.7 10^3/uL (0.0-1.0); MONOCYTES % (AUTO) 12.7 %; NEUTROPHILS # (AUTO) 3.3 10^3/uL (1.5-6.6); NEUTROPHILS % (AUTO) 56.5 %; PLT - PLATELET COUNT 193 10^3/uL (130-450); RED BLOOD COUNT 4.18 10^6/uL (4.20-5.40); RED CELL DISTRIBUTION WIDTH 14.4 % (12.0-15.0); WHITE BLOOD COUNT 5.8 x10^3/uL (4.8-10.8)
[2019-03-17 10:46] LABS: CLARITY,URINE CLEAR (CLEAR)
[2019-03-17 10:54] LABS: ALBUMIN 3.8 g/dL (3.2-5.5); ALBUMIN/GLOBULIN RATIO 1.3 (1.0-2.2); BILIRUBIN,TOTAL 0.4 mg/dL (0.2-1.0); TOTAL PROTEIN 6.7 g/dL (6.7-8.2)
[2019-03-17 11:00] LABS: CREATININE,URINE 66.6 mg/dL; MICROALBUM/CREATININE RATIO,UR 13.5 ug/mg (<30.0); MICROALBUMIN,URINE 0.9 mg/dL (0-300.0)
[2019-03-17 11:04] LABS: HB2 TOTAL 12.9 g/dL; HEMOGLOBIN A1C 0.72 g/dL; HEMOGLOBIN A1C % 7.3 % (4.6-6.2)
== END 2019-03-17 10:19 | disposition home or self-care (01) ==
LOC: LAB 10:18
PROVIDERS: ATTEND Internal Medicine
DX: E10.22 Type 1 diabetes mellitus with diabetic chronic kidney disease (principal); N18.9 Chronic kidney disease, unspecified; E78.5 Hyperlipidemia, unspecified; I48.0 Paroxysmal atrial fibrillation; I63.9 Cerebral infarction, unspecified; I77.9 Disorder of arteries and arterioles, unspecified; M54.5 Low back pain; R58 Hemorrhage, not elsewhere classified; J45.909 Unspecified asthma, uncomplicated; Z79.899 Other long term (current) drug therapy
CPT/HCPCS: 36415; 80053; 81001; 81003; 82043; 82550; 82570; 83036; 84443; 85025; 87086

== ENCOUNTER 2019-04-24 10:02 | Emergency (ER) | payer MEDICARE ==
--- NOTE | 2019-04-24 10:30 | ED Physician Documentation ---
PD HPI DYSPNEA - Stated complaint Stated Complaint: CHEST PX/SOA - Chief complaint Chief Complaint: Cardiac - History obtained from History obtained from: Patient - History of Present Illness Timing - onset: How many days ago (2-3 days of feeling generally weak, posturally lightheaded, and dyspnea on exertion. Chest tightness but no pain per se. She denies any recent illness. She denies change in fluid intake nor diet. She is mainly vegetarian but still likes cheese. No change in her intake. She has not had any change in medications and particularly no change in her diltiazem dose.) Timing - onset during: Light activity Timing - duration: Days (2-3) Timing - details: Gradual onset, Still present Inciting event(s): No: Out of meds, URI, Immobilization/travel Improved by: Rest Worsened by: Exertion (Just standing up to go to the bathroom and walking across the room has general weakness and lightheadedness. She feels short of breath with just walking around the house. This is unusual for her.) Associated symptoms: Chest pain / discomfort. No: Fever, Cough, Wheezing, Palpitations, Bilateral edema Similar symptoms before: Has not had sx before Recently seen: Not recently seen Review of Systems Constitutional: reports: Fatigue. denies: Fever, Chills, Myalgias, Weight Loss Nose: denies: Rhinorrhea / runny nose, Congestion Throat: denies: Sore throat Cardiac: reports: Chest pain / pressure (tightness with walking). denies: Palpitations, Pedal edema, Calf pain Respiratory: reports: Dyspnea. denies: Cough GI: denies: Nausea, Vomiting, Diarrhea : denies: Dysuria Musculoskeletal: denies: Extremity swelling Neurologic: reports: Generalized weakness, Near syncope. denies: Focal weakness, Numbness, Syncope, Altered mental status Endocrine: denies: Weight loss, Easy bruising / bleeding Immunocompromised: denies: Immunocompromised PD PAST MEDICAL HISTORY - Past Medical History Cardiovascular: Hypertension, High cholesterol Respiratory: Asthma Neuro: None Endocrine/Autoimmune: Type 1 diabetes GI: None, Other : None HEENT: None Psych: None Musculoskeletal: Osteoarthritis Derm: None, Other - Past Surgical History Past Surgical History: Yes Ortho: Other /EHS ENGINEER: section, 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, 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 Cardiovascular: Cardiac catheterization HEENT: Cataracts - Present Medications Home Medications: Ambulatory Orders Medication Instructions Recorded Confirmed Albuterol Sulfate [Proair Hfa] 8.5 gm IH BID PRN 10/24/13 12/21/17 Diltiazem HCl [Diltzac ER] 240 mg PO DAILY 10/24/13 12/21/17 Insulin Detemir [Levemir] 10 unit SUBQ ACHS 10/24/13 12/21/17 Simvastatin [Zocor] 10 mg PO HS 10/24/13 12/21/17 Aspirin [Aspir 81] 1 tab ORAL DAILY 02/02/14 12/21/17 Beclomethasone Dipropionate [Qvar] 1 puffs INH BID 02/02/14 12/21/17 Calcium Citrate/Vitamin D3 1 tab ORAL BID 02/02/14 12/21/17 [Calcium Cit-Vit D 250-200 Tab] Citalopram [CeleXA] 20 mg ORAL DAILY 02/02/14 12/21/17 Insulin Lispro [Humalog] 20 units SQ DAILY 02/02/14 12/21/17 Losartan/Hydrochlorothiazide 1 tab ORAL DAILY 02/02/14 12/21/17 [Losartan-Hctz 100-12.5 mg Tab] Insulin Detemir [Levemir Flextouch] 20 units SUBQ DAILY 12/21/17 12/21/17 - Allergies Allergies/Adverse Reactions: Allergies Allergy/AdvReac Type Severity Reaction Status Date / Time quinidine AdvReac Dizziness Verified 04/24/19 10:07 tetracycline [Tetracycline] AdvReac Emesis Verified 04/24/19 10:07 - Social History Does the pt smoke?: No Smoking Status: Never smoker Does the pt drink ETOH?: No Does the pt have substance abuse?: No - Immunizations Immunizations are current?: Yes - POLST Patient has POLST: No PD ED PE NORMAL - Vitals Vital signs reviewed: Yes - General General: Alert and oriented X 3, No acute distress, Well developed/nourished - HEENT HEENT: Moist mucous membranes, Pharynx benign - Neck Neck: Supple, no meningeal sign, No adenopathy - Cardiac Cardiac: No murmur. No: RRR (bradycardic at 42 rate.) - Respiratory Respiratory: Clear bilaterally - Abdomen Abdomen: Soft, Non tender - Back Back: No CVA TTP - Derm Derm: Normal color, Warm and dry - Extremities Extremities: No deformity, No tenderness to palpate, Normal ROM s pain, No edema, No calf tenderness / cord - Neuro Neuro: Alert and oriented X 3, No motor deficit, Normal speech Eye Opening: Spontaneous Motor: Obeys Commands Verbal: Oriented GCS Score: 15 - Psych Psych: Normal mood Results - Vitals Vitals: Vital Signs - 24 hr 04/24/19 04/24/19 04/24/19 10:07 10:10 11:02 Temperature 36.4 C L 36.7 C Heart Rate 43 L 41 L Heart Rate [ Sitting] Heart Rate [ Standing] Heart Rate [ Supine] Respiratory 15 15 Rate Blood Pressure 143/49 H 135/46 H Blood Pressure [Sitting] Blood Pressure [Standing] Blood Pressure [Supine] O2 Saturation 97 95 04/24/19 04/24/19 04/24/19 11:28 11:30 12:00 Temperature Heart Rate 41 L 41 L Heart Rate [ 42 L Sitting] Heart Rate [ 42 L Standing] Heart Rate [ 42 L Supine] Respiratory 18 15 Rate Blood Pressure 153/53 H 160/55 H Blood Pressure 138/47 H [Sitting] Blood Pressure 137/49 H [Standing] Blood Pressure 141/51 H [Supine] O2 Saturation 93 96 04/24/19 04/24/19 04/24/19 12:30 13:25 13:30 Temperature 36.6 C Heart Rate 41 L 42 L 42 L Heart Rate [ Sitting] Heart Rate [ Standing] Heart Rate [ Supine] Respiratory 19 18 19 Rate Blood Pressure 151/46 H 139/69 H 145/54 H Blood Pressure [Sitting] Blood Pressure [Standing] Blood Pressure [Supine] O2 Saturation 94 94 93 Oxygen O2 Source Room air - EKG (time done) 10:10 Rate: Rate (enter#) (42) Rhythm: Other (Narrow complex junctional rhythm with separate P waves independent.). No: Wide complex tachycardia Intervals: 3rd degree AVB Ischemia: Normal ST segments. No: ST elevation c/w ischemia, ST depression Compare to prior EKG: Old EKG unavailable - Labs Labs: Laboratory Tests 04/24/19 04/24/19 04/24/19 10:33 10:33 10:33 WBC 7.8 RBC 3.99 L Hgb 11.4 L Hct 35.1 L MCV 88.0 MCH 28.6 MCHC 32.5 RDW 13.1 Plt Count 196 MPV 10.5 Neut # (Auto) 5.9 Lymph # (Auto) 1.0 L [place] # (Auto) 0.8 Eos # (Auto) 0.2 Baso # (Auto) 0.1 Absolute Nucleated RBC 0.00 Nucleated RBC % 0.0 Sodium 133 L Potassium 4.7 Chloride 98 L Carbon Dioxide 27 Anion Gap 8.0 BUN 39 H Creatinine 1.6 H Estimated GFR (MDRD) 32 L Glucose 381 H Calcium 8.9 Magnesium 1.9 Total Bilirubin 0.9 AST 32 ALT 30 Alkaline Phosphatase 48 Troponin I High Sens 17.0 H* B-Natriuretic Peptide Total Protein 6.5 L Albumin 3.5 Globulin 3.0 Albumin/Globulin Ratio 1.2 Lipase 27 TSH 04/24/19 04/24/19 10:33 10:33 WBC RBC Hgb Hct MCV MCH MCHC RDW Plt Count MPV Neut # (Auto) Lymph # (Auto) [place] # (Auto) Eos # (Auto) Baso # (Auto) Absolute Nucleated RBC Nucleated RBC % Sodium Potassium Chloride Carbon Dioxide Anion Gap BUN Creatinine Estimated GFR (MDRD) Glucose Calcium Magnesium Total Bilirubin AST ALT Alkaline Phosphatase Troponin I High Sens B-Natriuretic Peptide 565 H Total Protein Albumin Globulin Albumin/Globulin Ratio Lipase TSH 2.58 PD MEDICAL DECISION MAKING - ED course Complexity details: reviewed results, re-evaluated patient (She is given some IV fluids as well as glucagon and calcium. No change at all in her heart rhythm which is still third-degree with junctional escape. Her blood pressure remained about the same as well. I talked with our hospitalist who felt the patient needed the availability of cardiology back-up since she had had her dose of diltiazem this morning so this may worsen (assuming the diltiazem is rodas factor here). Otherwise if it is not calcium mirian related, then the patient may need testing EPS studies to evaluate for need for pacemaker.), considered dif ferential (She does appear to be in third-degree heart block with a consistent rate at 41-42. It is a junctional rhythm. Her blood pressure shows a low diastolic reading but the systolic is adequate. Postural blood pressures did not show systolic drop but she did feel lightheaded with it. She feels okay resting in bed.), d/w patient, d/w individual pension consultant (I talked with the coal pulverizer operator at [facility] who agreed the patient should be watched on cardiac telemetry. He would initially see if there is some phase out from the diltiazem and if not would reevaluate for potential sick sinus syndrome or AV vanessa dysfunction. He deferred the initial admission to the hospitalist. I talked with Dr. Choudhury, the hospitalist who accepted transfer of the patient) ED course: The patient was accepted for transfer by the hospitalist at [facility] and I also talked with the coal pulverizer operator. This point the digital traffic coordinator said there have discharges and progress from the cardiac telemetry floor and they will give us a call within 1 or 2 hours with the bed assignment. Departure - Departure Disposition: 02 Transfer Acute Care Hosp Clinical Impression: Third degree heart block, Light-headed feeling, GURROLA (dyspnea on exertion) Condition: Stable
[2019-04-24] MEDS ORDERED: SODIUM CHLORIDE 0.9% 1,000 ML IV ONE (10:36)
[2019-04-24] MEDS ORDERED: CALCIUM GLUCONATE 1,000 MG in SODIUM CHLORIDE 0.9% 50 ML IV STA (10:37)
[2019-04-24] MEDS ORDERED: GLUCAGON 1 MG/ML VIAL IVP STA (10:38)
[2019-04-24 10:44] LABS: BASOPHILS # (AUTO) 0.1 10^3/uL (0.0-0.1); BASOPHILS % (AUTO) 0.6 %; EOSINOPHILS # (AUTO) 0.2 10^3/uL (0.0-0.7); EOSINOPHILS % (AUTO) 1.9 %; HGB - HEMOGLOBIN 11.4 g/dL (12.0-16.0); LYMPHOCYTES % (AUTO) 12.1 %; MEAN CORPUSCULAR HEMOGLOBIN 28.6 pg (27.0-31.0); MEAN CORPUSCULAR HGB CONC 32.5 g/dL (32.0-36.0); MEAN PLATELET VOLUME 10.5 fL (7.9-10.8); MONOCYTES # (AUTO) 0.8 10^3/uL (0.0-1.0); MONOCYTES % (AUTO) 10.3 %; NEUTROPHILS # (AUTO) 5.9 10^3/uL (1.5-6.6); NEUTROPHILS % (AUTO) 74.8 %; PLT - PLATELET COUNT 196 10^3/uL (130-450); RED BLOOD COUNT 3.99 10^6/uL (4.20-5.40); RED CELL DISTRIBUTION WIDTH 13.1 % (12.0-15.0); WHITE BLOOD COUNT 7.8 x10^3/uL (4.8-10.8)
[2019-04-24 10:57] LABS: ALBUMIN 3.5 g/dL (3.2-5.5); ALBUMIN/GLOBULIN RATIO 1.2 (1.0-2.2); BILIRUBIN,TOTAL 0.9 mg/dL (0.2-1.0); CALCIUM 8.9 mg/dL (8.5-10.3); CREATININE 1.6 mg/dL (0.4-1.0); MAGNESIUM 1.9 mg/dL (1.7-2.8); TOTAL PROTEIN 6.5 g/dL (6.7-8.2)
[2019-04-24] MEDS ORDERED: SODIUM CHLORIDE 0.9% 500 ML IV ONE (11:07)
--- NOTE | 2019-04-24 11:53 | XRAY Report ---
Reason: dyspnea Procedure Date: 04/24/2019 Accession Number: [id number] / [id number] Procedure: XR - Chest 1 View X-Ray CPT Code: 78465 FULL RESULT: EXAM: CHEST RADIOGRAPHY EXAM DATE: 04/24/2019 11:14 AM. CLINICAL HISTORY: Dyspnea. COMPARISON: CHEST 2 VIEW 12/21/2017 10:16 PM. TECHNIQUE: 1 view. FINDINGS: Lungs/Pleura: No focal opacities evident. No pleural effusion. No pneumothorax. Mediastinum: Within exam limitations, the cardiomediastinal contour is normal. Other: None. IMPRESSION: Stable negative single view chest. RADIA
[2019-04-24 15:12] VITALS: BP 135/43
== END 2019-04-24 15:25 | disposition short-term general hospital (02) ==
LOC: ED 10:02
DX: I44.2 Atrioventricular block, complete (principal); I10 Essential (primary) hypertension; E10.9 Type 1 diabetes mellitus without complications
CPT/HCPCS: 36415; 71045; 83690; 83735; 83880; 84484; 93005; 96361; 96365; 96375; 99284; 99285; J7040; 80053; 84443; 85025

== ENCOUNTER 2019-04-24 15:29 | Outpatient (CLI) | payer MEDICARE | END 2019-04-24 15:30 | disposition short-term general hospital (02) | LOC: EMS 15:29 | PROVIDERS: ATTEND Surgery | DX: R07.9 Chest pain, unspecified (principal) | CPT/HCPCS: A0425; A0426 ==

== ENCOUNTER 2021-05-21 08:52 | Outpatient (CLI) | payer MEDICARE ==
--- NOTE | 2021-05-22 08:41 | Mammography Report ---
BILATERAL DIGITAL SCREENING MAMMOGRAM 3D/2D: 05/21/2021 CLINICAL: Routine screening. Comparison is made to exams dated: 04/28/2018 mammogram, 04/07/2017 mammogram, and 03/17/2016 mammogram - [facility]. The tissue of both breasts is heterogeneously dense. This may lower the sensitivity of mammography. No significant masses, calcifications, or other findings are seen in either breast. There has been no significant interval change. IMPRESSION: NEGATIVE There is no mammographic evidence of malignancy. A 1 year screening mammogram is recommended. This exam was interpreted at Station ID: [id number]. NOTE: For mammograms, a report in lay terms will be sent to the patient. Approximately 15% of breast malignancies will not be visualized mammographically. In the management of a palpable breast mass, a negative mammogram must not discourage biopsy of a clinically suspicious lesion. Electronically Signed By: Mitul Goodson M.D. ar/patricia:05/21/2021 13:20:11 ACR BI-RADS Category 1: Negative 3341F PARENCHYMAL PATTERN: (D) - The breast(s) demonstrate(s) heterogeneously dense fibroglandular [place]. BI-RADS CATEGORY: (1) - 1 RECOMMENDATION: (ANNUAL) - Recommend routine annual screening mammography. [id number] 1 year screening LATERALITY: (B)
== END 2021-05-21 08:53 | disposition home or self-care (01) ==
LOC: DI 08:52
PROVIDERS: ATTEND Internal Medicine
DX: Z12.31 Encounter for screening mammogram for malignant neoplasm of breast (principal)

== ENCOUNTER 2021-11-07 08:00 | Outpatient (CLI) | payer MEDICARE | END 2021-11-07 23:59 | disposition home or self-care (01) | LOC: LAB.R 08:00 | PROVIDERS: ATTEND Internal Medicine | DX: E10.9 Type 1 diabetes mellitus without complications (principal) | CPT/HCPCS: 81599; 83036 ==

== ENCOUNTER 2021-11-07 16:18 | Outpatient (CLI) | payer MEDICARE ==
[2021-11-07 17:03] LABS: ALBUMIN 4.2 g/dL (3.2-5.5); ALBUMIN/GLOBULIN RATIO 1.6 (1.0-2.2); ALKALINE PHOSPHATASE 48 IU/L (42-121); ALT ALANINE AMINOTRANSFERASE 12 IU/L (10-60); AST ASPARTATE AMINOTRANSFERASE 15 IU/L (10-42); BILIRUBIN,TOTAL 1.1 mg/dL (0.2-1.0); BUN - BLOOD UREA NITROGEN 31 mg/dL (6-20); CALCIUM 9.2 mg/dL (8.5-10.3); CARBON DIOXIDE - CO2 26 mmol/L (21-32); CHLORIDE 97 mmol/L (101-111); CHOL/HDL RATIO 1.8 (<4.4); CHOLESTEROL 119 mg/dL; CREATININE 1.2 mg/dL (0.4-1.0); GFR - MDRD 44 (>89); GLUCOSE 214 mg/dL (70-100); HDL CHOLESTEROL 65 mg/dL; LDL CHOLESTEROL,CALCULATED 37 mg/dL; LDL/HDL RATIO 0.6 (<4.4); POTASSIUM 4.9 mmol/L (3.5-5.0); SODIUM 134 mmol/L (135-145); TOTAL PROTEIN 6.9 g/dL (6.7-8.2); TRIGLYCERIDES 85 mg/dL; VLDL CHOLESTEROL 17 mg/dL
== END 2021-11-07 16:19 | disposition home or self-care (01) ==
LOC: LAB 16:18
PROVIDERS: ATTEND Nurse Practitioner Family
DX: E10.649 Type 1 diabetes mellitus with hypoglycemia without coma (principal); E10.8 Type 1 diabetes mellitus with unspecified complications; Z79.4 Long term (current) use of insulin
CPT/HCPCS: 36415; 80053; 80061; 81599; 82043; 82570; 83036; 83721; 84443; 84681

== ENCOUNTER 2021-11-08 08:00 | Outpatient (CLI) | payer MEDICARE ==
[2021-11-08 15:22] LABS: CREATININE,URINE 61.8 mg/dL; MICROALBUM/CREATININE RATIO,UR 11.3 ug/mg (<30.0); MICROALBUMIN,URINE 0.7 mg/dL (0-300.0)
== END 2021-11-08 23:59 | disposition home or self-care (01) ==
LOC: LAB.R 08:00
PROVIDERS: ATTEND Nurse Practitioner Family
DX: E10.649 Type 1 diabetes mellitus with hypoglycemia without coma (principal)
CPT/HCPCS: 82043; 82570

== ENCOUNTER 2021-12-19 11:16 | Outpatient (CLI) | payer MEDICARE | END 2021-12-19 11:17 | disposition home or self-care (01) | LOC: LAB 11:16 | PROVIDERS: ATTEND Ophthalmology | DX: H49.22 Sixth [abducent] nerve palsy, left eye (principal); H53.2 Diplopia | CPT/HCPCS: 36415; 84443 ==

== ENCOUNTER 2022-04-10 15:59 | Outpatient (CLI) | payer MEDICARE ==
--- NOTE | 2022-04-10 17:22 | XRAY Report ---
PROCEDURE: Foot 3 View RT INDICATIONS: LUMP FEELING PLANTAR SURFACE TECHNIQUE: 3 views of the foot were acquired. COMPARISON: None FINDINGS: Bones: No fractures or dislocations. No suspicious bony lesions. Tarsometatarsal joint space narro wing with subchondral sclerosis present. Old healed fracture noted involving the distal fifth metatar nicholas Soft tissues: No tibiotalar joint effusion. Achilles tendon appears normal. IMPRESSION: Old healed fracture, distal fifth metatarsal. Tarsometatarsal osteoarthritic changes Reviewed by: Arvin Salas MD on 04/10/2022 4:21 PM [facility] Approved by: Arvin Salas MD on 04/10/2022 4:21 PM [facility] Station ID: [id number]
== END 2022-04-10 16:00 | disposition home or self-care (01) ==
LOC: DI 15:59
PROVIDERS: ATTEND Podiatrist
DX: M19.071 Primary osteoarthritis, right ankle and foot (principal); E11.40 Type 2 diabetes mellitus with diabetic neuropathy, unspecified; Z87.81 Personal history of (healed) traumatic fracture

== ENCOUNTER 2022-08-05 07:44 | Outpatient (CLI) | payer MEDICARE ==
[2022-08-05] MEDS ORDERED: iohexoL-300 100 ML VIAL ONE (07:52)
[2022-08-05 08:11] LABS: CREATININE 1.1 mg/dL (0.4-1.0)
[2022-08-05] MEDS ORDERED: iohexoL-300 100 ML VIAL IVP ONE (09:28)
--- NOTE | 2022-08-05 09:40 | CT Report ---
PROCEDURE: HEAD W/WO INDICATIONS: DIPLOPIA, LEFT 6TH NERVE PALSY TECHNIQUE: 4.5 mm thick angled axial sections acquired from the foramen magnum to the vertex before and after th e administration of intravenous contrast. For radiation dose reduction, the following was used: aut omated exposure control, adjustment of mA and/or kV according to patient size. CONTRAST: 100ml Omnipaque 300 COMPARISON: MRI brain 12/27/2018 FINDINGS: Image quality: Excellent. The ventricular system and cortical sulci demonstrate atrophy, consistent for patient's stated age. There are areas of hypodensity in the periventricular and subcortical white matter. There is no acut e intra or extra-axial fluid collection. No acute hemorrhage, mass lesion or midline shift. 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 Brainstem is unremarkable. Previous lens extractions are noted. Sinuses are aerated. Osseous structures are intact. IMPRESSION: 1. No acute intracranial process. If concern persists, MRI is recommended. 2. Moderate atrophy and chronic microvascular ischemic changes. Reviewed by: Wanda Joseph MD on 08/05/2022 9:39 AM PST Approved by: Wanda Joseph MD on 08/05/2022 9:39 AM PST Station ID: [id number]
== END 2022-08-05 07:45 | disposition home or self-care (01) ==
LOC: DI 07:44
PROVIDERS: ATTEND Ophthalmology
DX: H49.22 Sixth [abducent] nerve palsy, left eye (principal); H53.2 Diplopia; G31.9 Degenerative disease of nervous system, unspecified; I67.82 Cerebral ischemia
CPT/HCPCS: 36415; 70470; 82565; Q9967

== ENCOUNTER 2022-09-17 12:22 | Outpatient (CLI) | payer MEDICARE ==
[2022-09-17 13:01] LABS: BASOPHILS % (AUTO) 0.6 %; EOSINOPHILS # (AUTO) 0.4 10^3/uL (0.0-0.7); EOSINOPHILS % (AUTO) 5.7 %; HCT - HEMATOCRIT 38.9 % (37.0-47.0); MEAN CORPUSCULAR HEMOGLOBIN 28.2 pg (27.0-31.0); MEAN CORPUSCULAR HGB CONC 30.8 g/dL (32.0-36.0); MEAN CORPUSCULAR VOLUME 91.5 fL (81.0-99.0); MEAN PLATELET VOLUME 9.6 fL (7.9-10.8); MONOCYTES # (AUTO) 0.9 10^3/uL (0.0-1.0); MONOCYTES % (AUTO) 13.6 %; NEUTROPHILS # (AUTO) 4.5 10^3/uL (1.5-6.6); PLT - PLATELET COUNT 164 10^3/uL (130-450); RED BLOOD COUNT 4.25 10^6/uL (4.20-5.40); RED CELL DISTRIBUTION WIDTH 13.2 % (12.0-15.0); WHITE BLOOD COUNT 6.9 x10^3/uL (4.8-10.8)
[2022-09-17 13:14] LABS: CALCIUM 9.7 mg/dL (8.5-10.3); POTASSIUM 4.9 mmol/L (3.5-5.0)
[2022-09-17] MEDS ORDERED: iohexoL-300 100 ML VIAL ONE (14:50)
--- NOTE | 2022-09-17 15:08 | XRAY Report ---
PROCEDURE: Chest 2 View X-Ray INDICATIONS: COUGH TECHNIQUE: 2 views of the chest were acquired. COMPARISON: None. FINDINGS: Surgical changes and devices: Intravenous leads projected over the appropriate positions. Metallic d evice projects over the left upper quadrant. Lungs and pleura: No pleural effusions or pneumothorax. Lungs are clear. Peribronchial cuffing. Mediastinum: Mediastinal contours are normal. Heart size is normal. Bones and chest wall: No suspicious bony abnormalities. Soft tissues appear unremarkable. IMPRESSION: Peribronchial cuffing, suggestive of infectious or inflammatory bronchitis. Reviewed by: Cristobal Pena on 09/17/2022 3:07 PM [facility] Approved by: Cristobal Pena on 09/17/2022 3:07 PM [facility] Station ID: [id number]
[2022-09-17] MEDS ORDERED: iohexoL-300 100 ML VIAL IVP ONE (15:48)
--- NOTE | 2022-09-17 15:52 | CT Report ---
PROCEDURE: ANGIO CHEST W/WO INDICATIONS: POSTIVE DIMER CONTRAST: 80mL Omni 300 TECHNIQUE: After the administration of intravenous contrast, 2 mm axial images were acquired from the pulmonary apices to the posterior costophrenic angles during the arterial phase. In addition, 1 mm lung kernel and 5 mm soft tissue kernel reconstructions were performed. 3-dimensional coronal oblique maximum int ensity projection (MIP) reformats, 8 mm axial MIP, and 5 mm coronal and sagittal MPR reformats were t hen performed through the thorax. For radiation dose reduction, the following was used: automated exp osure control, adjustment of mA and/or kV according to patient size. COMPARISON: None FINDINGS: Image quality: Excellent. Pulmonary arteries: Pulmonary arteries are normal in size, and demonstrate no intraluminal filling d efects to suggest central pulmonary embolism. Lungs and pleura: Central airway is patent. There is mild diffuse perihilar bronchial wall thickening . Mosaic attenuation seen throughout the lungs. No focal dense consolidations, effusion, or pneumotho rax. Lungs are clear. No pleural effusions or pneumothorax. Central and peripheral airways are pyle nt. Mediastinum: Heart size is normal, without pericardial effusion. Heavy mitral annular calcification. Pacemaker leads present. No mediastinal or hilar adenopathy. Thoracic aorta is normal in caliber an d enhancement. Mildly patulous esophagus with very small hiatal hernia present.. Bones and chest wall: No suspicious bony lesions. Ribs and thoracic spine appear intact throughout. No axillary or supraclavicular adenopathy. The thyroid is normal in size and there are no incident al findings. Left chest pacer. Abdomen: Visualized upper abdominal solid organs appear normal in the early arterial phase of enhanc ement. IMPRESSION: 1. Bronchial wall thickening suggestive of bronchitis with mosaic attenuation throughout the lungs co nsistent with air trapping. This may also relate to COPD. Bronchial wall thickening can also be seen in the setting of CHF. Correlate clinically. 2. No pulmonary embolus. 3. Slightly patulous esophagus and small hiatal hernia. Correlate with history of reflux. 4. Heavy mitral annular calcification. Reviewed by: Eva Matos MD on 09/17/2022 3:50 PM PST Approved by: Eva Matos MD on 09/17/2022 3:50 PM PST Station ID: [id number]
== END 2022-09-17 12:23 | disposition home or self-care (01) ==
LOC: DI 12:22
PROVIDERS: ATTEND Internal Medicine
DX: R91.8 Other nonspecific abnormal finding of lung field (principal); R05.3 Chronic cough; R06.09 Other forms of dyspnea; I12.9 Hypertensive chronic kidney disease with stage 1 through stage 4 chronic kidney disease, or unspecified chronic kidney disease; N18.9 Chronic kidney disease, unspecified; Z79.899 Other long term (current) drug therapy; R79.1 Abnormal coagulation profile; K44.9 Diaphragmatic hernia without obstruction or gangrene; I34.81 Nonrheumatic mitral (valve) annulus calcification
CPT/HCPCS: 36415; 71046; 71275; 80048; 83880; 85025; 85379; Q9967

== ENCOUNTER 2022-12-22 10:06 | Emergency (ER) | payer MEDICARE ==
--- NOTE | 2022-12-22 12:43 | ED Physician Documentation ---
History of Present Illness - Stated complaint Stated Complaint: CONFUSION/FEELING UNWELL - Chief complaint Chief Complaint: Neuro - History obtained from History obtained from: Patient, Family - History of Present Illness Timing: Last night Pain level max: 3 Pain level now: 0 - Additonal information Additional information: 77 year old diabetic female states she just felt "terrible" yesterday. She states she is unable to describe it any further than this. She just felt bad. Her states that she did complain of a headache and said it was severe. The patient states that she had a mild headache and only lasted for about an hour. The patient denies any rhinorrhea, congestion, sore throat, vision ch anges, neck pain, back pain, chest pain, shortness of breath. She states that she did have mild nausea. She also states that she had mild abdominal cramping that lasted about 10 minutes. Denies any urinary symptoms. Denies any rashes. Denies any numbness or tingling. States her blood sugar was normal on her Dexcom. She states now she feels normal, just tired. She took a home COVID test that was negative. No diarrhea. No constipation. The headache was gradual in onset, holoacranial. Similar to prior headaches Review of Systems Constitutional: denies: Fever, Chills Eyes: denies: Loss of vision, Decreased vision, Photophobia Ears: denies: Ear pain Nose: denies: Rhinorrhea / runny nose, Congestion, Epistaxis, Sinus pressure / pain Throat: denies: Sore throat Cardiac: denies: Chest pain / pressure, Palpitations Respiratory: denies: Dyspnea, Cough, Hemoptysis, Wheezing GI: denies: Vomiting, Diarrhea Skin: denies: Rash Musculoskeletal: denies: Neck pain, Back pain Neurologic: denies: Generalized weakness, Focal weakness, Numbness, Confused, Altered mental status PD PAST MEDICAL HISTORY - Past Medical History Cardiovascular: Hypertension, High cholesterol Respiratory: Asthma Neuro: None Endocrine/Autoimmune: Type 1 diabetes GI: None, Other : None HEENT: None Psych: None Musculoskeletal: Osteoarthritis Derm: None, Other - Past Surgical History Past Surgical History: Yes 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, 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, 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 Cardiovascular: Cardiac catheterization HEENT: Cataracts - Present Medications Home Medications: Ambulatory Orders Medication Instructions Recorded Confirmed Albuterol Sulfate [Proair Hfa] 8.5 gm IH BID PRN 10/24/13 12/21/17 Diltiazem HCl [Diltzac ER] 240 mg PO DAILY 10/24/13 12/21/17 Insulin Detemir [Levemir] 10 unit SUBQ ACHS 10/24/13 12/21/17 Simvastatin [Zocor] 10 mg PO HS 10/24/13 12/21/17 Aspirin [Aspir 81] 1 tab ORAL DAILY 02/02/14 12/21/17 Beclomethasone Dipropionate [Qvar] 1 puffs INH BID 02/02/14 12/21/17 Calcium Citrate/Vitamin D3 1 tab ORAL BID 02/02/14 12/21/17 [Calcium Cit-Vit D 250-200 Tab] Citalopram [CeleXA] 20 mg ORAL DAILY 02/02/14 12/21/17 Insulin Lispro [Humalog] 20 units SQ DAILY 02/02/14 12/21/17 Losartan/Hydrochlorothiazide 1 tab ORAL DAILY 02/02/14 12/21/17 [Losartan-Hctz 100-12.5 mg Tab] Insulin Detemir [Levemir Flextouch] 20 units SUBQ DAILY 12/21/17 12/21/17 - Allergies Allergies/Adverse Reactions: Allergies Allergy/AdvReac Type Severity Reaction Status Date / Time quinidine AdvReac Dizziness Verified 04/24/19 10:07 tetracycline [Tetracycline] AdvReac Emesis Verified 04/24/19 10:07 - Social History Does the pt smoke?: No Smoking Status: Never smoker Does the pt drink ETOH?: No Does the pt have substance abuse?: No - Immunizations Immunizations are current?: Yes - POLST Patient has POLST: No PD ED PE NORMAL - Vitals Vital signs reviewed: Yes - General General: Alert and oriented X 3, No acute distress, Well developed/nourished - HEENT HEENT: PERRL, Moist mucous membranes, Pharynx benign - Neck Neck: Supple, no meningeal sign - Cardiac Cardiac: RRR, Strong equal pulses - Respiratory Respiratory: No respiratory distress, Clear bilaterally - Abdomen Abdomen: Soft, Non tender, Non distended - Derm Derm: Warm and dry, No rash - Extremities Extremities: No edema, No calf tenderness / cord - Neuro Neuro: Alert and oriented X 3, 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 Relevant findings are: Rate: Rate (enter#) (68) Rhythm: NSR [place]: Normal Intervals: Normal IA QRS: Normal Ischemia: Normal ST segments, Q waves (V1-2) - Labs Labs: Laboratory Tests 12/22/22 12/22/22 12/22/22 12:47 12:50 12:50 WBC 8.8 RBC 4.52 Hgb 12.7 Hct 40.2 MCV 88.9 MCH 28.1 MCHC 31.6 L RDW 13.8 Plt Count 170 MPV 9.9 Neut # (Auto) 6.7 H Lymph # (Auto) 0.9 L [place] # (Auto) 1.0 Eos # (Auto) 0.1 Baso # (Auto) 0.0 Absolute Nucleated RBC 0.00 Nucleated RBC % 0.0 Sodium 136 Potassium 4.1 Chloride 101 Carbon Dioxide 31 Anion Gap 4.0 L BUN 20 Creatinine 1.0 Estimated GFR (MDRD) 54 L Glucose 108 H Calcium 8.8 Total Bilirubin 0.9 AST 19 ALT 16 Alkaline Phosphatase 42 Troponin I High Sens Total Protein 7.1 Albumin 3.8 Globulin 3.3 Albumin/Globulin Ratio 1.2 Lipase 37 Urine Color YELLOW Urine Clarity CLEAR Urine pH 6.5 Ur Specific [place] 1.010 Urine Protein NEGATIVE Urine Glucose (UA) NEGATIVE Urine Ketones NEGATIVE Urine Occult Blood SMALL H Urine Nitrite NEGATIVE Urine Bilirubin NEGATIVE Urine Urobilinogen 0.2 (NORMAL) Ur Leukocyte Esterase NEGATIVE Urine RBC 6-10 H Urine WBC 0-3 Ur Squamous Epith Cells RARE Squamous Urine Bacteria None Seen Ur Microscopic Review INDICATED Urine Culture Comments NOT INDICATED 12/22/22 12:50 WBC RBC Hgb Hct MCV MCH MCHC RDW Plt Count MPV Neut # (Auto) Lymph # (Auto) [place] # (Auto) Eos # (Auto) Baso # (Auto) Absolute Nucleated RBC Nucleated RBC % Sodium Potassium Chloride Carbon Dioxide Anion Gap BUN Creatinine Estimated GFR (MDRD) Glucose Calcium Total Bilirubin AST ALT Alkaline Phosphatase Troponin I High Sens 1265.5 H* Total Protein Albumin Globulin Albumin/Globulin Ratio Lipase Urine Color Urine Clarity Urine pH Ur Specific [place] Urine Protein Urine Glucose (UA) Urine Ketones Urine Occult Blood Urine Nitrite Urine Bilirubin Urine Urobilinogen Ur Leukocyte Esterase Urine RBC Urine WBC Ur Squamous Epith Cells Urine Bacteria Ur Microscopic Review Urine Culture Comments - Rads (name of study) cxr Relevant Findings:: Final report received, See rad report head CT Relevant Findings:: Final report received, See rad report PD Medical Decision Making - ED course Complexity details: reviewed results, re-evaluated patient, considered differential, d/w patient, d/w family ED course: CBC does not show any acute abnormalities. Chemistry similarly is without acute abnormality other than her high-sensitivity troponin which is elevated at 1265.5. She was given aspirin and started on Lovenox. 134, we began to call surrounding hospitals looking for a bed for an NSTEMI. Patient has previously had a pacemaker put in at [facility] in [place], she did see a elastic attacher coverstitch in [place] but he has since retired. She does not currently have a elastic attacher coverstitch. I spoke with Dr. Gordon at approximately 215, She recommends transfer to the hospitalist service and further evaluation [facility] in [place]. I spoke with the hospitalist, Dr. Yung, At approximately 230. The hospitalist states that the patient had a normal stress test approximately 3 months ago and a normal echocardiogram. She is questioning the need for transfer of this patient. Explained that the patient has a significantly elevated troponin and likely warrants evaluation with cardiology. The hospitalist wants to speak to the elastic attacher coverstitch herself to determine if the patient needs to be transferred or not. [facility] called back and accepted the patient. COBRA forms completed. Patient transferred Departure - Departure Disposition: 02 Transfer Acute Care Hosp Clinical Impression: NSTEMI (non-ST elevated myocardial infarction) Condition: Stable
[2022-12-22 12:51] LABS: BILIRUBIN,URINE NEGATIVE (NEGATIVE); GLUCOSE, URINE (UA) NEGATIVE (NEGATIVE); KETONES,URINE (UA) NEGATIVE (NEGATIVE); LEUKOCYTE ESTERASE, URINE NEGATIVE (NEGATIVE); NITRITE,URINE NEGATIVE (NEGATIVE); OCCULT BLOOD,URINE SMALL (NEGATIVE); PH,URINE 6.5 PH (5.0-7.5); PROTEIN,URINE NEGATIVE (NEGATIVE); UROBILINOGEN,URINE 0.2 (NORMAL) E.U./dL (NORMAL)
[2022-12-22 12:58] LABS: BASOPHILS % (AUTO) 0.5 %; EOSINOPHILS # (AUTO) 0.1 10^3/uL (0.0-0.7); EOSINOPHILS % (AUTO) 1.2 %; HCT - HEMATOCRIT 40.2 % (37.0-47.0); HGB - HEMOGLOBIN 12.7 g/dL (12.0-16.0); LYMPHOCYTES # (AUTO) 0.9 10^3/uL (1.5-3.5); LYMPHOCYTES % (AUTO) 10.3 %; MEAN CORPUSCULAR HEMOGLOBIN 28.1 pg (27.0-31.0); MEAN CORPUSCULAR HGB CONC 31.6 g/dL (32.0-36.0); MEAN CORPUSCULAR VOLUME 88.9 fL (81.0-99.0); MEAN PLATELET VOLUME 9.9 fL (7.9-10.8); MONOCYTES % (AUTO) 11.2 %; NEUTROPHILS # (AUTO) 6.7 10^3/uL (1.5-6.6); NEUTROPHILS % (AUTO) 76.5 %; PLT - PLATELET COUNT 170 10^3/uL (130-450); RED BLOOD COUNT 4.52 10^6/uL (4.20-5.40); RED CELL DISTRIBUTION WIDTH 13.8 % (12.0-15.0); WHITE BLOOD COUNT 8.8 x10^3/uL (4.8-10.8)
[2022-12-22 13:00] LABS: CLARITY,URINE CLEAR (CLEAR)
[2022-12-22 13:03] LABS: WBC,URINE 0-3 /HPF (0-5)
[2022-12-22 13:04] LABS: BACTERIA,URINE None Seen /HPF (None Seen); SQUAMOUS EPITHELIAL CELL,UR RARE Squamous (<= Few)
[2022-12-22 13:35] LABS: ALBUMIN 3.8 g/dL (3.2-5.5); ALBUMIN/GLOBULIN RATIO 1.2 (1.0-2.2); BILIRUBIN,TOTAL 0.9 mg/dL (0.2-1.0); CALCIUM 8.8 mg/dL (8.5-10.3); POTASSIUM 4.1 mmol/L (3.5-5.0); TOTAL PROTEIN 7.1 g/dL (6.7-8.2)
[2022-12-22] MEDS ORDERED: ASPIRIN CHEW 81 MG TABLET PO STA (13:41)
[2022-12-22] MEDS ORDERED: ENOXAPARIN 80 MG/0.8 ML SYRINGE SUBQ STA (13:42)
--- NOTE | 2022-12-22 13:47 | CT Report ---
PROCEDURE: HEAD WO INDICATIONS: headache TECHNIQUE: Noncontrast 4.5 mm thick angled axial sections acquired from the foramen magnum to the vertex. For r adiation dose reduction, the following was used: automated exposure control, adjustment of mA and/or kV according to patient size. COMPARISON: 08/05/2022 FINDINGS: Image quality: Excellent. CSF spaces: Basal cisterns are patent. No extra-axial fluid collections. Mild diffuse dural calcifi cation. Ventricles are normal in size and shape. Brain: No midline shift. No intracranial masses or hemorrhage. Age-appropriate cervical cortical vo lume loss. Remote right basal ganglia infarct. Moderate hypodensity throughout the periventricular wh ite matter. Rendon-white matter interface is normal. Skull and face: Calvarium and visualized facial bones are intact, without suspicious lesions. Sinuses: Visualized sinuses and mastoids are clear. IMPRESSION: 1. No CT evidence of acute intracranial process. 2. Chronic microvascular ischemic changes with focal remote right basal ganglia lacunar infarct. Reviewed by: Eva Matos MD on 12/22/2022 12:45 PM ELDON Approved by: Eva Matos MD on 12/22/2022 12:45 PM ELDON Station ID: [id number]
--- NOTE | 2022-12-22 13:51 | XRAY Report ---
PROCEDURE: Chest 1 View X-Ray INDICATIONS: nausea, feeling unwell, DM TECHNIQUE: One view of the chest was acquired. COMPARISON: 09/17/2022 FINDINGS: Surgical changes and devices: Dual-lead left-sided pacemaker. Lungs and pleura: Diffuse thickening of the interstitial markings. No dense consolidation, effusion, or pneumothorax. Mediastinum: Mild, stable cardiomegaly. Indistinct central vessels. Normal aortic contour. Bones and chest wall: No suspicious bony lesions. Overlying soft tissues appear unremarkable. IMPRESSION: Mild diffuse interstitial thickening and indistinct central vessels suggesting the chest or volume ov erload. Interstitial pneumonitis may also have this appearance. Mild, stable cardiomegaly. Reviewed by: Eva Matos MD on 12/22/2022 12:49 PM ELDON Approved by: Eva Matos MD on 12/22/2022 12:49 PM ELDON Station ID: [id number]
[2022-12-22] MEDS ORDERED: SODIUM CHLORIDE 0.9% 1,000 ML IV STA (15:03)
[2022-12-22 16:15] VITALS: BP 149/54
== END 2022-12-22 16:22 | disposition short-term general hospital (02) ==
LOC: ED 10:06
DX: I21.4 Non-ST elevation (NSTEMI) myocardial infarction (principal)
CPT/HCPCS: 36415; 70450; 71045; 80053; 81001; 83690; 84484; 85025; 93005; 96372; 99284; 99285; A9270; J1650; 81003; 87086

== ENCOUNTER 2022-12-26 14:18 | Outpatient (CLI) | payer MEDICARE ==
[2022-12-26 14:36] LABS: CALCIUM 9.2 mg/dL (8.5-10.3); CREATININE 2.3 mg/dL (0.4-1.0); POTASSIUM 4.6 mmol/L (3.5-5.0)
== END 2022-12-26 14:19 | disposition home or self-care (01) ==
LOC: LAB 14:18
PROVIDERS: ATTEND Internal Medicine
DX: N18.9 Chronic kidney disease, unspecified (principal)
CPT/HCPCS: 36415; 80048

== ENCOUNTER 2023-03-10 08:01 | Outpatient (CLI) | payer MEDICARE | END 2023-03-10 08:02 | disposition home or self-care (01) | LOC: DI 08:01 | PROVIDERS: ATTEND Internal Medicine | DX: R60.9 Edema, unspecified (principal); I25.10 Atherosclerotic heart disease of native coronary artery without angina pectoris; R01.1 Cardiac murmur, unspecified; I51.7 Cardiomegaly; Z95.0 Presence of cardiac pacemaker; I34.81 Nonrheumatic mitral (valve) annulus calcification; I34.0 Nonrheumatic mitral (valve) insufficiency | CPT/HCPCS: 93306 ==

== ENCOUNTER 2023-07-08 11:15 | Outpatient (CLI) | payer MEDICARE ==
--- NOTE | 2023-07-09 10:20 | Mammography Report ---
BILATERAL DIGITAL SCREENING MAMMOGRAM 3D/2D: 07/08/2023 CLINICAL: Routine screening. Comparison is made to exams dated: 05/21/2021 mammogram, 04/28/2018 mammogram, 04/07/2017 mammogram, mammogram, and 03/17/2016 mammogram - [facility]. There are scattered areas of fibroglandular density in both breasts (category b / 25%-50% glandular t issue). No significant masses, calcifications, or other findings are seen in either breast. There has been no significant interval change. IMPRESSION: NEGATIVE There is no mammographic evidence of malignancy. A 1 year screening mammogram is recommended. Based on the Tyrer Cuzick model (a risk assessment model) the patients lifetime risk is 1.9% and her 10 year risk is 0.0%. According to the ACR, ACS, and NCCN guidelines, an annual breast MRI exam charisse g with mammogram is recommended if the patients lifetime risk is 20% or greater. This exam was interpreted at Station ID: [id number]. NOTE: For mammograms, a report in lay terms will be sent to the patient. Approximately 15% of breast malignancies will not be visualized mammographically. In the management of a palpable breast mass, a negative mammogram must not discourage biopsy of a clinically suspicious lesion. Electronically Signed By: Elizabeth Sawyer M.D., PH.D [email or web address]/[email or web address]:07/08/2023 23:43:18 letter sent: No_Letter ACR BI-RADS Category 1: Negative 3341F PARENCHYMAL PATTERN: (A) - The breast(s) demonstrate(s) scattered fibroglandular densities. BI-RADS CATEGORY: (1) - 1 Mammogram [id number] 1 year screening LATERALITY: (B)
== END 2023-07-08 11:16 | disposition home or self-care (01) ==
LOC: DI 11:15
PROVIDERS: ATTEND Internal Medicine
DX: Z12.31 Encounter for screening mammogram for malignant neoplasm of breast (principal); R92.323 Mammographic fibroglandular density, bilateral breasts

== ENCOUNTER 2023-10-19 13:24 | Outpatient (CLI) | payer MEDICARE ==
[2023-10-19 13:51] LABS: BASOPHILS # (AUTO) 0.1 10^3/uL (0.0-0.1); BASOPHILS % (AUTO) 0.9 %; EOSINOPHILS # (AUTO) 0.9 10^3/uL (0.0-0.7); EOSINOPHILS % (AUTO) 10.7 %; HGB - HEMOGLOBIN 12.8 g/dL (12.0-16.0); LYMPHOCYTES # (AUTO) 1.6 10^3/uL (1.5-3.5); LYMPHOCYTES % (AUTO) 18.3 %; MEAN CORPUSCULAR HEMOGLOBIN 30.1 pg (27.0-31.0); MEAN CORPUSCULAR HGB CONC 32.8 g/dL (32.0-36.0); MEAN CORPUSCULAR VOLUME 91.8 fL (81.0-99.0); MEAN PLATELET VOLUME 9.9 fL (7.9-10.8); MONOCYTES # (AUTO) 0.9 10^3/uL (0.0-1.0); NEUTROPHILS # (AUTO) 5.1 10^3/uL (1.5-6.6); NEUTROPHILS % (AUTO) 59.9 %; PLT - PLATELET COUNT 187 10^3/uL (130-450); RED BLOOD COUNT 4.25 10^6/uL (4.20-5.40); RED CELL DISTRIBUTION WIDTH 13.3 % (12.0-15.0); WHITE BLOOD COUNT 8.5 x10^3/uL (4.8-10.8)
[2023-10-19 13:59] LABS: PARTIAL THROMBOPLASTIN TIME 27.1 secs (24.9-33.3)
[2023-10-19 14:03] LABS: PT - PROTHROMBIN TIME 11.4 secs (9.9-12.6)
[2023-10-19 14:06] LABS: ALBUMIN 3.8 g/dL (3.2-5.5); ALBUMIN/GLOBULIN RATIO 1.6 (1.0-2.2); BILIRUBIN,TOTAL 1.1 mg/dL (0.2-1.0); CALCIUM 9.8 mg/dL (8.5-10.3); CREATININE 2.1 mg/dL (0.6-1.3); POTASSIUM 4.8 mmol/L (3.5-4.5); TOTAL PROTEIN 6.2 g/dL (6.4-8.9)
[2023-10-19 20:02] LABS: ESTIMATED AVERAGE GLUCOSE 100 mg/dL (70-100); HEMOGLOBIN A1c% 5.1 % (4.27-6.07)
== END 2023-10-19 13:25 | disposition home or self-care (01) ==
LOC: LAB 13:24
PROVIDERS: ATTEND Physical Medicine & Rehabilitation
DX: Z01.818 Encounter for other preprocedural examination (principal); M54.9 Dorsalgia, unspecified; R73.9 Hyperglycemia, unspecified; Z51.81 Encounter for therapeutic drug level monitoring
CPT/HCPCS: 36415; 80053; 83036; 85025; 85610; 85730; 93005

== ENCOUNTER 2023-12-01 15:25 | Outpatient (CLI) | payer MEDICARE ==
[2023-12-01 16:13] LABS: ALBUMIN 4.1 g/dL (3.2-5.5); ALBUMIN/GLOBULIN RATIO 1.7 (1.0-2.2); BILIRUBIN,TOTAL 0.8 mg/dL (0.2-1.0); CALCIUM 10.6 mg/dL (8.5-10.3); CREATININE 1.8 mg/dL (0.6-1.3); POTASSIUM 4.5 mmol/L (3.5-4.5); TOTAL PROTEIN 6.5 g/dL (6.4-8.9)
[2023-12-01 20:22] LABS: ESTIMATED AVERAGE GLUCOSE 103 mg/dL (70-100); HEMOGLOBIN A1c% 5.2 % (4.27-6.07)
== END 2023-12-01 15:26 | disposition home or self-care (01) ==
LOC: LAB 15:25
PROVIDERS: ATTEND Nurse Practitioner
DX: E10.65 Type 1 diabetes mellitus with hyperglycemia (principal); E10.22 Type 1 diabetes mellitus with diabetic chronic kidney disease
CPT/HCPCS: 36415; 80053; 82043; 82570; 83036

== ENCOUNTER 2023-12-02 11:25 | Outpatient (CLI) | payer MEDICARE ==
[2023-12-02 11:39] LABS: CREATININE,URINE 72.4 mg/dL; MICROALBUMIN,URINE 1.3 mg/dL
== END 2023-12-02 11:26 | disposition home or self-care (01) ==
LOC: LAB.R 11:25
PROVIDERS: ATTEND Nurse Practitioner
DX: E10.65 Type 1 diabetes mellitus with hyperglycemia (principal); E10.22 Type 1 diabetes mellitus with diabetic chronic kidney disease
CPT/HCPCS: 82043; 82570

== ENCOUNTER 2023-12-26 14:00 | Emergency (ER) | payer MEDICARE ==
[2023-12-26 14:12] VITALS: BP 112/60; O2SAT 96
--- NOTE | 2023-12-26 16:26 | ED Physician Documentation ---
History of Present Illness - Stated complaint Stated Complaint: C+ COUGH - Chief complaint Chief Complaint: General - History obtained from History obtained from: Patient - Additonal information Additional information: 78-year-old female who is a type I diabetic and has a history of hypertension presents with a positive home COVID test. She has had a frequent mostly dry cough since yesterday as well as mild nasal congestion, scratchy throat, decreased appetite and tested positive for COVID at home. Her tested positive as well. She has not had a fever to her knowledge, no chest pain, no acute dyspnea, no abdominal pain, vomiting, or diarrhea, no urinary symptoms. She has been taking [id number] [place] without relief in her symptoms. She called her PCP today to get paxlovid but the on-call service was directed her to the ER. Review of Systems Constitutional: reports: Reviewed and negative Eyes: reports: Reviewed and negative Ears: reports: Foreign body Nose: reports: Rhinorrhea / runny nose, Congestion Throat: reports: Sore throat Cardiac: reports: Reviewed and negative Respiratory: reports: Cough. 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 Cardiovascular: Cardiac catheterization HEENT: Cataracts - Present Medications Home Medications: Ambulatory Orders Medication Instructions Recorded Confirmed Diltiazem HCl [Diltzac ER] 240 mg PO DAILY 10/24/13 12/26/23 Simvastatin [Zocor] 10 mg PO HS 10/24/13 12/26/23 Aspirin [Aspir 81] 1 tab ORAL DAILY 02/02/14 12/26/23 Beclomethasone Dipropionate [Qvar] 1 puffs INH BID 02/02/14 12/26/23 Calcium Citrate/Vitamin D3 1 tab ORAL BID 02/02/14 12/26/23 [Calcium Cit-Vit D 250-200 Tab] Citalopram [CeleXA] 20 mg ORAL DAILY 07/10/14 06/01/24 Insulin Lispro [Humalog] 20 units SQ DAILY 02/02/14 12/26/23 Benzonatate [Tessalon] 100 mg PO TID PRN #30 cap 12/26/23 Losartan [Cozaar] 100 mg PO DAILY 12/26/23 12/26/23 Molnupiravir [Lagevrio (Eua)] 800 mg PO BID 5 Days #40 cap 12/26/23 - Allergies Allergies/Adverse Reactions: Allergies Allergy/AdvReac Type Severity Reaction Status Date / Time quinidine AdvReac Dizziness Verified 12/26/23 14:06 tetracycline [Tetracycline] AdvReac Emesis Verified 12/26/23 14:06 - Social History Does the pt smoke?: No Smoking Status: Never smoker Does the pt drink ETOH?: No Does the pt have substance abuse?: No - Immunizations Immunizations are current?: Yes - POLST Patient has POLST: No PD ED PE NORMAL - Vitals Vital signs reviewed: Yes - General General: Alert and oriented X 3, No acute distress, Well developed/nourished - HEENT HEENT: Atraumatic, Moist mucous membranes, Pharynx benign - Neck Neck: Supple, no meningeal sign, No JVD - Cardiac Cardiac: RRR, No murmur - Respiratory Respiratory: No respiratory distress, Clear bilaterally - Abdomen Abdomen: Normal bowel sounds, Soft, Non tender, Non distended Results - Vitals Vitals: Vital Signs - 24 hr 12/26/23 14:06 Temperature 36.7 C Heart Rate 92 Respiratory 16 Rate Blood Pressure 112/60 O2 Saturation 96 Oxygen O2 Source Room air PD Medical Decision Making - ED course Complexity details: d/w patient ED course: 78-year-old female presented with cough and congestion and tested positive for COVID at home. She is well-appearing here on physical exam, afebrile nontoxic stable vital signs, breathing comfortably on room air. She is requesting Paxlovid however after review of her medication she is on diltiazem and atorvastatin also has decreased renal function therefore I would recommend they be changed to the alternative Molnupiravir for her. I have prescribed Paxlovid for her however. I will also prescribe Tessalon Perles. She was encouraged to stay well-hydrated, and ensure she is getting adequate rest p.o. intake. I discussed return precautions if her symptoms should worsen at all. At this time, no indication for lab work or chest x-ray. Departure - Departure Disposition: 01 Home, Self Care Clinical Impression: COVID-19 Condition: Good Instructions: ED Viral Syndrome Prescriptions: Molnupiravir [Lagevrio (Eua)] 800 mg PO BID 5 Days #40 cap Benzonatate [Tessalon] 100 mg PO TID PRN #30 cap PRN Reason: Cough Comments: Melina, I have prescribed you a different medication than your for your COVID given the medications that you are on. You will take the molnupiravir as prescribed. I have also prescribed you a cough medication. You can take Tylenol as needed for pain or fever. If you have worsening symptoms, please return to the ER. Forms: PCP List
== END 2023-12-26 17:09 | disposition home or self-care (01) ==
LOC: ED 14:00
DX: U07.1 COVID-19 (principal); I10 Essential (primary) hypertension; E78.00 Pure hypercholesterolemia, unspecified; E10.8 Type 1 diabetes mellitus with unspecified complications; Z79.899 Other long term (current) drug therapy; Z79.82 Long term (current) use of aspirin
CPT/HCPCS: 99282; 99283

== ENCOUNTER 2024-01-05 10:10 | Outpatient (CLI) | payer MEDICARE ==
--- NOTE | 2024-01-05 11:43 | XRAY Report ---
PROCEDURE: Chest 2V INDICATIONS: CHRONIC COUGH TECHNIQUE: 2 views of the chest were acquired. COMPARISON: 12/22/2022 FINDINGS: Surgical changes and devices: Left chest wall pulse generator with electrode leads in place. Lungs and pleura: No consolidation or pleural effusion. Mediastinum: There are vascular calcifications. Normal heart size. Bones and chest wall: Degenerative changes. IMPRESSION: No acute radiographic abnormality. Reviewed by: Cullen Humphreys MD on 01/05/2024 11:42 AM PDT Approved by: Cullen Humphreys MD on 01/05/2024 11:42 AM PDT Station ID: [id number]
== END 2024-01-05 10:11 | disposition home or self-care (01) ==
LOC: DI 10:10
PROVIDERS: ATTEND Internal Medicine
DX: R05.3 Chronic cough (principal)

== ENCOUNTER 2024-01-23 05:16 | Emergency (ER) | payer MEDICARE ==
[2024-01-23 06:41] LABS: VBG PCO2 63.4 mmHg (41-51); VBG PH 7.298 (7.31-7.41)
[2024-01-23 06:42] LABS: VBG BASE EXCESS 2.3 mmol/L (-2 - +2); VBG HCO3 30.4 mmol/L (23-28); VBG OXYGEN SATURATION 37.8 % (60-80); VBG PO2 23.6 mmHg (25-47); VBG TOTAL CO2 32.3 mmol/L (24-29)
[2024-01-23 06:47] LABS: BASOPHILS # (AUTO) 0.1 10^3/uL (0.0-0.1); BASOPHILS % (AUTO) 0.9 %; EOSINOPHILS # (AUTO) 0.7 10^3/uL (0.0-0.7); EOSINOPHILS % (AUTO) 7.9 %; HCT - HEMATOCRIT 40.4 % (37.0-47.0); HGB - HEMOGLOBIN 12.3 g/dL (12.0-16.0); LYMPHOCYTES # (AUTO) 1.4 10^3/uL (1.5-3.5); LYMPHOCYTES % (AUTO) 15.6 %; MEAN CORPUSCULAR HEMOGLOBIN 29.4 pg (27.0-31.0); MEAN CORPUSCULAR HGB CONC 30.4 g/dL (32.0-36.0); MEAN CORPUSCULAR VOLUME 96.7 fL (81.0-99.0); MEAN PLATELET VOLUME 10.3 fL (7.9-10.8); MONOCYTES # (AUTO) 1.1 10^3/uL (0.0-1.0); MONOCYTES % (AUTO) 11.8 %; NEUTROPHILS # (AUTO) 5.9 10^3/uL (1.5-6.6); NEUTROPHILS % (AUTO) 63.4 %; PLT - PLATELET COUNT 202 10^3/uL (130-450); RED BLOOD COUNT 4.18 10^6/uL (4.20-5.40); RED CELL DISTRIBUTION WIDTH 13.5 % (12.0-15.0); WHITE BLOOD COUNT 9.2 x10^3/uL (4.8-10.8)
[2024-01-23 06:52] LABS: BILIRUBIN,URINE NEGATIVE (NEGATIVE); GLUCOSE, URINE (UA) NEGATIVE (NEGATIVE); KETONES,URINE (UA) NEGATIVE (NEGATIVE); LEUKOCYTE ESTERASE, URINE MODERATE (NEGATIVE); NITRITE,URINE POSITIVE (NEGATIVE); OCCULT BLOOD,URINE SMALL (NEGATIVE); PH,URINE 6.5 PH (5.0-7.5); PROTEIN,URINE NEGATIVE (NEGATIVE); UROBILINOGEN,URINE 0.2 (NORMAL) E.U./dL (NORMAL)
[2024-01-23 06:55] LABS: CLARITY,URINE CLOUDY (CLEAR)
[2024-01-23 06:59] LABS: ALBUMIN 3.9 g/dL (3.2-5.5); ALBUMIN/GLOBULIN RATIO 1.8 (1.0-2.2); ALKALINE PHOSPHATASE 45 IU/L (42-121); ALT ALANINE AMINOTRANSFERASE 10 IU/L (10-60); AST ASPARTATE AMINOTRANSFERASE 15 IU/L (10-42); BILIRUBIN,TOTAL 0.7 mg/dL (0.2-1.0); BUN - BLOOD UREA NITROGEN 25 mg/dL (6-20); CALCIUM 9.8 mg/dL (8.5-10.3); CARBON DIOXIDE - CO2 33 mmol/L (21-32); CHLORIDE 101 mmol/L (101-111); CREATININE 1.4 mg/dL (0.6-1.3); GFR - MDRD 37 (>89); GLUCOSE 96 mg/dL (74-104); LIPASE 12 U/L (11-82); POTASSIUM 4.8 mmol/L (3.5-4.5); SODIUM 138 mmol/L (135-145); TOTAL PROTEIN 6.1 g/dL (6.4-8.9)
[2024-01-23 07:12] LABS: BACTERIA,URINE Many /HPF (None Seen); SQUAMOUS EPITHELIAL CELL,UR FEW Squamous (<= Few); WBC,URINE >25 /HPF (0-5)
[2024-01-23 07:12] LABS: KETONES, SERUM (ACETEST) NEGATIVE (NEGATIVE)
--- NOTE | 2024-01-23 07:53 | ED Physician Documentation ---
History of Present Illness - Stated complaint Stated Complaint: ANX/HEART PALP - Chief complaint Chief Complaint: Resp - History obtained from History obtained from: Patient, Family - History of Present Illness Timing: Today - Additonal information Additional information: Melina Fitzgerald is a 78-year-old female with type 1 diabetes since age 7 who has an A1c now at 5.9. She has a Dexcom and uses insulin. This morning she got up to go to the bathroom after having a dream that she was going to . She had very little urine output she felt unwell. She presents to the emergency department now with concerns about why she felt this way. She did develop some acute dyspnea and palpitations and feels that this was likely a panic attack. She is no longer feeling panicked. Review of Systems Constitutional: denies: Fever, Chills, Myalgias Eyes: denies: Decreased vision Ears: denies: Ear pain Nose: denies: Rhinorrhea / runny nose, Congestion Throat: denies: Sore throat Cardiac: denies: Chest pain / pressure, Palpitations Respiratory: denies: Dyspnea, Cough GI: denies: Abdominal Pain, Nausea, Vomiting, Constipation, Diarrhea : reports: Frequency. 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: section, 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, 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 Cardiovascular: Cardiac catheterization HEENT: Cataracts - Present Medications Home Medications: Ambulatory Orders Medication Instructions Recorded Confirmed Aspirin [Aspir 81] 1 tab ORAL DAILY 02/02/14 01/23/24 Beclomethasone Dipropionate [Qvar] 1 puffs INH BID 02/02/14 01/23/24 Calcium Citrate/Vitamin D3 1 tab ORAL BID 02/02/14 01/23/24 [Calcium Cit-Vit D 250-200 Tab] Citalopram [CeleXA] 20 mg ORAL DAILY 02/02/14 01/23/24 Insulin Lispro [Humalog] 20 units SQ DAILY 02/02/14 01/23/24 Atorvastatin Calcium 40 mg PO DAILY 01/23/24 01/23/24 Irbesartan 300 mg PO QPM 01/23/24 01/23/24 Metoprolol Succinate 100 mg PO DAILY 01/23/24 01/23/24 cephALEXin [Keflex] 500 mg PO Q6H #28 cap 01/23/24 - Allergies Allergies/Adverse Reactions: Allergies Allergy/AdvReac Type Severity Reaction Status Date / Time quinidine AdvReac Dizziness Verified 01/23/24 05:25 tetracycline [Tetracycline] AdvReac Emesis Verified 01/23/24 05:25 - Social History Does the pt smoke?: No Smoking Status: Never smoker Does the pt drink ETOH?: No Does the pt have substance abuse?: No - Immunizations Immunizations are current?: Yes - POLST Patient has POLST: No PD ED PE NORMAL - Vitals Vital signs reviewed: Yes (Hypertensive) - General General: Alert and oriented X 3, No acute distress, Well developed/nourished - HEENT HEENT: Atraumatic, PERRL, EOMI - Neck Neck: Supple, no meningeal sign, No bony TTP - Cardiac Cardiac: RRR, No murmur - Respiratory Respiratory: No respiratory distress, Clear bilaterally - Abdomen Abdomen: Soft, Non tender - Back Back: No CVA TTP, No spinal TTP - Derm Derm: Normal color, Warm and dry, No rash - Extremities Extremities: No deformity, No edema - Neuro Neuro: Alert and oriented X 3, benefits manager 2-12 intact, No motor deficit, No sensory deficit, Normal speech Eye Opening: Spontaneous Motor: Obeys Commands Verbal: Oriented GCS Score: 15 - Psych Psych: Normal mood, Normal affect Results - Vitals Vitals: Vital Signs - 24 hr 01/23/24 01/23/24 05:21 06:38 Temperature 36.0 C L Heart Rate 64 60 Respiratory 18 28 H Rate Blood Pressure 149/68 H 185/73 H O2 Saturation 95 96 Oxygen O2 Source Room air - Labs Labs: Laboratory Tests 01/23/24 01/23/24 01/23/24 06:16 06:27 06:27 WBC 9.2 RBC 4.18 L Hgb 12.3 Hct 40.4 MCV 96.7 MCH 29.4 MCHC 30.4 L RDW 13.5 Plt Count 202 MPV 10.3 Neut # (Auto) 5.9 Lymph # (Auto) 1.4 L [place] # (Auto) 1.1 H Eos # (Auto) 0.7 Baso # (Auto) 0.1 Absolute Nucleated RBC 0.00 Nucleated RBC % 0.0 VBG pH VBG pCO2 VBG pO2 VBG HCO3 VBG Total CO2 VBG O2 Saturation VBG Base Excess Sodium 138 Potassium 4.8 H Chloride 101 Carbon Dioxide 33 H Anion Gap 4.0 L BUN 25 H Creatinine 1.4 H Estimated GFR (MDRD) 37 L Glucose 96 POC Whole Bld Glucose Calcium 9.8 Total Bilirubin 0.7 AST 15 ALT 10 Alkaline Phosphatase 45 Total Protein 6.1 L Albumin 3.9 Globulin 2.2 Albumin/Globulin Ratio 1.8 Lipase 12 Urine Color YELLOW Urine Clarity CLOUDY Urine pH 6.5 Ur Specific [place] 1.020 Urine Protein NEGATIVE Urine Glucose (UA) NEGATIVE Urine Ketones NEGATIVE Urine Occult Blood SMALL H Urine Nitrite POSITIVE H Urine Bilirubin NEGATIVE Urine Urobilinogen 0.2 (NORMAL) Ur Leukocyte Esterase MODERATE H Urine RBC 6-10 H Urine WBC >25 H Ur Squamous Epith Cells FEW Squamous Urine Bacteria Many H Ur Microscopic Review INDICATED Urine Culture Comments INDICATED Serum Ketones NEGATIVE 01/23/24 01/23/24 06:27 06:35 WBC RBC Hgb Hct MCV MCH MCHC RDW Plt Count MPV Neut # (Auto) Lymph # (Auto) [place] # (Auto) Eos # (Auto) Baso # (Auto) Absolute Nucleated RBC Nucleated RBC % VBG pH 7.298 L VBG pCO2 63.4 H VBG pO2 23.6 L VBG HCO3 30.4 H VBG Total CO2 32.3 H VBG O2 Saturation 37.8 L VBG Base Excess 2.3 H Sodium Potassium Chloride Carbon Dioxide Anion Gap BUN Creatinine Estimated GFR (MDRD) Glucose POC Whole Bld Glucose 109 H Calcium Total Bilirubin AST ALT Alkaline Phosphatase Total Protein Albumin Globulin Albumin/Globulin Ratio Lipase Urine Color Urine Clarity Urine pH Ur Specific [place] Urine Protein Urine Glucose (UA) Urine Ketones Urine Occult Blood Urine Nitrite Urine Bilirubin Urine Urobilinogen Ur Leukocyte Esterase Urine RBC Urine WBC Ur Squamous Epith Cells Urine Bacteria Ur Microscopic Review Urine Culture Comments Serum Ketones Procedures - IVC sono (time) 0600 Bedside IVC sono: IVC measures (cm) (1.72), Euvolemia PD Medical Decision Making - ED course Complexity details: reviewed old records, reviewed results, re-evaluated patient, considered differential, d/w patient, d/w family Reviewed Lab Results: We reviewed a complete blood count showing a normal white blood cell count normal hemoglobin hematocrit and platelets chemistries showed an elevated pota ssium at 4.8 BUN is elevated at 25 creatinine 1.4 BUN and creatinine are similar to most recent and improved from most recent. Potassium at 4.8 similar to priors from this year liver functions are normal urinalysis shows positive nitrate moderate leukocyte esterase greater than 25 white blood cells per high- powered field many bacteria and the specimen did make the grade 4 culture toxicology shows negative serum ketones.I interpreted these laboratory studies to indicate the patient was not in ketoacidosis and she does have evidence of urinary tract infection. ED course: To the major presents to the emergency department this morning after awakening from a dream feeling that she had went into the bathroom and not feeling well she began to have rapid breathing and felt that maybe she was having a panic attack she is come to the emergency department now feeling normal.She denies any movement in her dream as does her . Departure - Departure Disposition: 01 Home, Self Care Clinical Impression: Urinary tract infection Qualifiers: Urinary tract infection type: acute cystitis Hematuria presence: with hematuria Qualified Code(s): N30.01 - Acute cystitis with hematuria Condition: Stable Instructions: ED UTI Cystitis Female Follow-Up: Perla Kuhn MD [Primary Care Provider] - Prescriptions: cephALEXin [Keflex] 500 mg PO Q6H #28 cap Comments: Melina, today it looks like you have a urinary tract infection and we have E scribed some Keflex to the [facility] in [place]. Our expectation with treatment is improvement of any symptoms and we should have formal sensitivities to the organism responsible for the infection within 2 to 3 days. If you get a telephone call from us it is because the organism is not sensitive to the antibiotic we put you on. Today we were able to give you a dose of Rocephin which is usually effective.
[2024-01-23] MEDS: cefTRIAXone 1 GM in SODIUM CHLORIDE 0.9% MINIBAG 100 ML IV STA ×2 (08:57→09:38)
[2024-01-23 09:45] VITALS: BP 158/84; O2SAT 98
== END 2024-01-23 09:42 | disposition home or self-care (01) ==
LOC: ED 05:16
DX: N30.01 Acute cystitis with hematuria (principal); E10.9 Type 1 diabetes mellitus without complications; Z79.4 Long term (current) use of insulin
CPT/HCPCS: 36415; 80053; 81001; 81003; 82009; 82803; 83690; 85025; 87086; 87181; 96365; 99284

== ENCOUNTER 2024-03-25 04:46 | Emergency (ER) | payer MEDICARE ==
--- NOTE | 2024-03-25 04:59 | ED Physician Documentation ---
History of Present Illness - Stated complaint Stated Complaint: SOA - Additonal information Additional information: 78-year-old female with history of third-degree heart block, syncope, type 1 diabetes, hypertension, hypercholesterolemia, asthma, osteoarthritis, hysterectomy who presents with dyspnea. History clarified from triage. History from both patient and spouse. Patient went to bed feeling normally, then woke feeling panicked. Spouse states this has happened to her before, without clear cause identified. I do see a similar prior visit in past ER notes. Patient here notes she feels it is difficult to take a deep breath. However, she denies pain at any time. No fevers, chills, new cough (she notes mild chronic unchanged cough), nausea or vomiting, chest pain, abdominal pain, back or flank pain, leg pain or swelling, trauma, lightheadedness or syncope. She does note mild orthopnea. No other new concerns. ROS Constitutional: no fever, no chills Eyes: no visual disturbance, no discharge Ears, Nose, Mouth, Throat: no rhinorrhea, no sore throat Cardiovascular: no chest pain, no palpitations Respiratory: +unchanged cough, shortness of breath Gastrointestinal: no abdominal pain, no vomiting, no diarrhea Genitourinary: no dysuria, no hematuria Musculoskeletal: no back pain, no neck stiffness Skin: no rash, no wound Neurological: no focal weakness, no focal numbness PD PAST MEDICAL HISTORY - Past Medical History Cardiovascular: Hypertension, High cholesterol Respiratory: Asthma Neuro: None Endocrine/Autoimmune: Type 1 diabetes GI: None, Other : None HEENT: None Psych: None Musculoskeletal: Osteoarthritis Derm: None, Other - Past Surgical History Past Surgical History: Yes 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: section, 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, 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 Cardiovascular: Cardiac catheterization HEENT: Cataracts - Present Medications Home Medications: Ambulatory Orders Medication Instructions Recorded Confirmed Aspirin [Aspir 81] 1 tab ORAL DAILY 02/02/14 01/23/24 Beclomethasone Dipropionate [Qvar] 1 puffs INH BID 02/02/14 01/23/24 Calcium Citrate/Vitamin D3 1 tab ORAL BID 02/02/14 01/23/24 [Calcium Cit-Vit D 250-200 Tab] Citalopram [CeleXA] 20 mg ORAL DAILY 02/02/14 01/23/24 Insulin Lispro [Humalog] 20 units SQ DAILY 02/02/14 01/23/24 Atorvastatin Calcium 40 mg PO DAILY 01/23/24 01/23/24 Irbesartan 300 mg PO QPM 01/23/24 01/23/24 Metoprolol Succinate 100 mg PO DAILY 01/23/24 01/23/24 cephALEXin [Keflex] 500 mg PO Q6H #28 cap 01/23/24 - Allergies Allergies/Adverse Reactions: Allergies Allergy/AdvReac Type Severity Reaction Status Date / Time quinidine AdvReac Dizziness Verified 03/25/24 05:17 tetracycline [Tetracycline] AdvReac Emesis Verified 03/25/24 05:17 - Social History Does the pt smoke?: No Smoking Status: Never smoker Does the pt drink ETOH?: No Does the pt have substance abuse?: No - Immunizations Immunizations are current?: Yes - POLST Patient has POLST: No PD ED PE NORMAL - Free text exam Free text exam: Const: no acute distress, non toxic appearing; anxious, remains conversant, pleasant Eyes: PERRLA, EOMI ENT: mucous membranes moist Neck: supple, non-tender Resp: no respiratory distress, clear to auscultation bilaterally however patient will not take a deep breath despite verbal coaching Card: regular rate and rhythm, no murmurs Abd: non tender diffusely, no rigidity or rebound or guarding Back: no T or L spine tenderness, no CVA tenderness bilaterally Extrem: no deformities, no swelling bilateral lower extremities, 2+ distal pulses all extremities Neuro: ANOx4, jigger artisan grossly intact, grossly intact sensation and strength all extremities Skin: no rash, warm and dry Results - Vitals Vitals: Vital Signs - 24 hr 03/25/24 03/25/24 03/25/24 05:05 05:17 06:07 Temperature 36.7 C Heart Rate 64 60 60 Respiratory 22 18 19 Rate Blood Pressure 182/59 H 182/59 H 172/69 H O2 Saturation 96 96 95 Oxygen O2 Source Room air - EKG (time done) EKG shows normal sinus rhythm without acute ischemia or immediately concerning interval prolongation. EKG releavant findings:: EKG personally interpreted by author of this note. Relevant findings are: Repeat EKG paced rhythm without acute ischemia or immediately concerning interval prolongation, similar morphology to prior today. EKG releavant findings:: EKG personally interpreted by author of this note. Relevant findings are: - Labs Labs: Laboratory Tests 03/25/24 03/25/24 03/25/24 05:11 05:11 05:11 WBC 5.8 RBC 4.13 L Hgb 11.7 L Hct 38.7 MCV 93.7 MCH 28.3 MCHC 30.2 L RDW 13.2 Plt Count 167 MPV 10.5 Neut # (Auto) 3.6 Lymph # (Auto) 1.0 L [place] # (Auto) 0.8 Eos # (Auto) 0.4 Baso # (Auto) 0.0 Absolute Nucleated RBC 0.00 Nucleated RBC % 0.0 D-Dimer Sodium 137 Potassium 4.4 Chloride 101 Carbon Dioxide 32 Anion Gap 4.0 L BUN 24 H Creatinine 1.1 Estimated GFR (MDRD) 48 L Glucose 84 Calcium 9.8 Total Bilirubin 1.0 AST 41 ALT 38 Alkaline Phosphatase 61 Troponin I High Sens 7.2 B-Natriuretic Peptide Total Protein 6.3 L Albumin 3.9 Globulin 2.4 Albumin/Globulin Ratio 1.6 Nasal Influenza B PCR Nasal Influenza A PCR Nasal RSV (PCR) Nasal SARS-CoV-2 (PCR) 03/25/24 03/25/24 03/25/24 05:11 05:32 05:32 WBC RBC Hgb Hct MCV MCH MCHC RDW Plt Count MPV Neut # (Auto) Lymph # (Auto) [place] # (Auto) Eos # (Auto) Baso # (Auto) Absolute Nucleated RBC Nucleated RBC % D-Dimer 344.9 H Sodium Potassium Chloride Carbon Dioxide Anion Gap BUN Creatinine Estimated GFR (MDRD) Glucose Calcium Total Bilirubin AST ALT Alkaline Phosphatase Troponin I High Sens B-Natriuretic Peptide 263 H Total Protein Albumin Globulin Albumin/Globulin Ratio Nasal Influenza B PCR NOT DETECTED Nasal Influenza A PCR NOT DETECTED Nasal RSV (PCR) NOT DETECTED Nasal SARS-CoV-2 (PCR) NOT DETECTED - Rads (name of study) CXR Relevant Findings:: EMP independent interpretation of test, Other PD Medical Decision Making - ED course ED course: This patient presents with shortness of breath and orthopnea starting overnight, along with sensation of anxiety. Spouse is of the opinion this is a panic attack, and I do see a similar prior episode in the past. However, I have considered a broad differential including but not limited to CHF, asthma, symptomatic anemia, DKA, pneumothorax, pneumonia, viral syndrome, ACS, pulmonary embolism, among others. Of these etiologies, CHF seems most possible given patient's orthopnea. Lack of chest pain and reassuring vital signs and reassuring current exam argue against PE, with presentation also not consistent with ACS. Exam argues against asthma and PTX. DKA is unlikely clinically. Abrupt start overnight argues against PNA. She is hypertensive but no crackles on respiratory exam with patient currently appearing stable, arguing against flash pulmonary edema. I am obtaining EKG, CXR, CBC, CMP, BNP, dimer, troponin, viral swab and closely reassessing. Patient stable and understands plan. EKG shows what I suspect is paced rhythm without acute ischemia or immediately concerning interval prolongation. CXR: I agree with radiology reads of imaging on my independent review of imaging. Dr. Moreno read at 5:45AM is no acute cardiopulmonary disease. Labs: CBC with mild anemia, no leukocytosis, no thrombocytopenia. CMP grossly reassuring, creatinine improved from prior. No LFT elevation. Initial high sensitivity troponin at 7.2; will plan to repeat at roughly 0710. BNP mildly elevated. D-dimer elevated however note this is within age adjusted limits for patient, making VTE very unlikely in setting of low clinical suspicion. Repeat troponin ordered for 0710. Viral swab negative. Blood pressure is elevated but suitable for outpatient follow up, with no evidence of hypertensive emergency here clinically. Repeat EKG paced rhythm without acute ischemia or immediately concerning interval prolongation, similar morphology to prior today. Signed out to oncoming AM physician at 0700 with plan to follow up repeat troponin. If reassuring, discharge would be reasonable; I have discussed this with patient and prepared instructions to this effect, pending viral swab/repeat troponin results. Departure - Departure Clinical Impression: Shortness of breath Condition: Good Instructions: ED Dyspnea Shortness of Breath Comments: It was a pleasure taking care of you today. It is important to fully read and understand the below. Please ask us if you have any questions. Your testing here is overall reassuring. You have a mildly elevated BNP, D- dimer, and mild anemia. Please discuss your workup today with your primary doctor and be reevaluated in person within 2 to 3 days. If you have new or worsening concerns, please immediately return. Please follow up on your blood pressure with your primary doctor, as it was elevated here. No tests or assessments are perfect, and your condition could business change manager time. If your symptoms change or worsen, it is very important you immediately seek medical care. If you have any new or worsening pain, shortness of breath, lightheadedness or passing out, fever, vomiting, confusion, numbness, weakness, or anything else that concerns you, please immediately seek medical care. If you have been prescribed any medications: please read the drug package inserts on how to properly use the medication and any potential side effects. If you had labs (blood tests) or imaging (CT scan or x-rays) done during your visit: please follow up on the results of these with your primary care doctor, as discussed. In addition, please know the results we received today may be preliminary. Our usual practice is to follow up on tests within a few days of a patient's discharge from the Emergency Department and notify you of any changes. These may lead to changes to your treatment plan. However, the best way to obtain and interpret these test results is through your Primary Care Provider. If you need to update your contact information, please stop by the front tender and alert the Registration personnel before you leave the Emergency Department. Thank you for the opportunity to participate in your healthcare. We are always here and happy to see you in the future. Forms: PCP List
[2024-03-25 05:21] LABS: BASOPHILS % (AUTO) 0.7 %; EOSINOPHILS # (AUTO) 0.4 10^3/uL (0.0-0.7); EOSINOPHILS % (AUTO) 6.5 %; HCT - HEMATOCRIT 38.7 % (37.0-47.0); HGB - HEMOGLOBIN 11.7 g/dL (12.0-16.0); LYMPHOCYTES % (AUTO) 17.7 %; MEAN CORPUSCULAR HEMOGLOBIN 28.3 pg (27.0-31.0); MEAN CORPUSCULAR HGB CONC 30.2 g/dL (32.0-36.0); MEAN CORPUSCULAR VOLUME 93.7 fL (81.0-99.0); MEAN PLATELET VOLUME 10.5 fL (7.9-10.8); MONOCYTES # (AUTO) 0.8 10^3/uL (0.0-1.0); MONOCYTES % (AUTO) 12.9 %; NEUTROPHILS # (AUTO) 3.6 10^3/uL (1.5-6.6); NEUTROPHILS % (AUTO) 61.9 %; PLT - PLATELET COUNT 167 10^3/uL (130-450); RED BLOOD COUNT 4.13 10^6/uL (4.20-5.40); RED CELL DISTRIBUTION WIDTH 13.2 % (12.0-15.0); WHITE BLOOD COUNT 5.8 x10^3/uL (4.8-10.8)
[2024-03-25 05:32] LABS: ALBUMIN 3.9 g/dL (3.2-5.5); ALBUMIN/GLOBULIN RATIO 1.6 (1.0-2.2); CALCIUM 9.8 mg/dL (8.5-10.3); CREATININE 1.1 mg/dL (0.6-1.3); POTASSIUM 4.4 mmol/L (3.5-4.5); TOTAL PROTEIN 6.3 g/dL (6.4-8.9)
[2024-03-25 06:27] LABS: INFLUENZA A- RESP PCR PANEL NOT DETECTED; INFLUENZA B - RESP PCR PANEL NOT DETECTED; RSV- RESP PCR PANEL NOT DETECTED; SARS-CoV-2 -RESP PCR PANEL NOT DETECTED
--- NOTE | 2024-03-25 07:47 | ED Physician Documentation ---
ED Addendum - Addendum Addendum: 03/25/24 07:45 Patient was signed out to me awaiting repeat troponin. This is negative. Please see the prior physicians note for full H&P on this patient. Patient is asymptomatic. Negative high sensitive troponin x 2. No other acute abnormalities. Patient counseled regarding signs and symptoms for which I believe and urgent re-evaluation would be necessary. Patient with good understanding of and agreement to plan and is comfortable going home at this time This document was made in part using voice recognition software. While efforts are made to proofread this document, sound alike and grammatical errors may occur. Departure - Departure Disposition: 01 Home, Self Care Clinical Impression: Shortness of breath Condition: Good Instructions: ED Dyspnea Shortness of Breath Follow-Up: your,doctor in 2-3 days [Other] Comments: It was a pleasure taking care of you today. It is important to fully read and understand the below. Please ask us if you have any questions. Your testing here is overall reassuring. You have a mildly elevated BNP, D- dimer, and mild anemia. Please discuss your workup today with your primary doctor and be reevaluated in person within 2 to 3 days. If you have new or worsening concerns, please immediately return. Please follow up on your blood pressure with your primary doctor, as it was elevated here. No tests or assessments are perfect, and your condition could knife changer time. If your symptoms change or worsen, it is very important you immediately seek medical care. If you have any new or worsening pain, shortness of breath, lightheadedness or passing out, fever, vomiting, confusion, numbness, weakness, or anything else that concerns you, please immediately seek medical care. If you have been prescribed any medications: please read the drug package inserts on how to properly use the medication and any potential side effects. If you had labs (blood tests) or imaging (CT scan or x-rays) done during your visit: please follow up on the results of these with your primary care doctor, as discussed. In addition, please know the results we received today may be preliminary. Our usual practice is to follow up on tests within a few days of a patient's discharge from the Emergency Department and notify you of any changes. These may lead to changes to your treatment plan. However, the best way to obtain and interpret these test results is through your Primary Care Provider. If you need to update your contact information, please stop by the frontend engineer and alert the Registration personnel before you leave the Emergency Department. Thank you for the opportunity to participate in your healthcare. We are always here and happy to see you in the future. Forms: PCP List
--- NOTE | 2024-03-25 07:57 | XRAY Report ---
PROCEDURE: Chest 1V INDICATIONS: SOB TECHNIQUE: One view of the chest was acquired. COMPARISON: 01/05/2024 FINDINGS: Surgical changes and devices: Left chest wall pulse generator with dual chamber electrodes leads. Lungs and pleura: Interstitial is mildly prominent. No dense consolidation. No drainable effusions Mediastinum: Heart size is at the upper limit of normal. Bones and chest wall: Degenerative changes IMPRESSION: Mildly prominent interstitium could be an artifact of low lung volumes, versus mild edema or atypical infection. No dense consolidation, pleural effusion, or other acute abnormality. No significant discrepancy from prelim report. Reviewed by: Cullen Humphreys MD on 03/25/2024 7:56 AM PDT Approved by: Cullen Humphreys MD on 03/25/2024 7:56 AM PDT Station ID: [id number]
[2024-03-25 08:10] VITALS: BP 184/71; O2SAT 97
== END 2024-03-25 08:02 | disposition home or self-care (01) ==
LOC: ED 04:46
DX: R06.02 Shortness of breath (principal)
CPT/HCPCS: 36415; 80053; 83880; 84484; 85025; 85379; 87637; 93005; 99283; 99284

== ENCOUNTER 2024-04-22 16:57 | Outpatient (CLI) | payer MEDICARE ==
[2024-04-22 20:35] LABS: ESTIMATED AVERAGE GLUCOSE 120 mg/dL (70-100); HEMOGLOBIN A1c% 5.8 % (4.27-6.07)
== END 2024-04-22 16:58 | disposition home or self-care (01) ==
LOC: LAB 16:57
PROVIDERS: ATTEND Nurse Practitioner
DX: E10.65 Type 1 diabetes mellitus with hyperglycemia (principal)
CPT/HCPCS: 36415; 83036